=== PATIENT | female | born 1950 | race Caucasian/White ===

== ENCOUNTER → 2017-06-15 | Outpatient (CLI) | payer BC ==
--- NOTE | 2017-06-16 13:50 | MM ---
Reason for exam: screening (asymptomatic). Last mammogram was performed 1 year ago. History: Patient is postmenopausal and has history of other cancer at age 59. Family history of premenopausal breast cancer in sister at age 50 and breast cancer in mother at age 55. Benign right mammotome panel of the right breast, June 05, 2013. Benign excisional biopsy of the left breast, July 01, 1998. Benign stereotactic core biopsy of the left breast, May 27, 1998. Benign stereotactic core biopsy of the left breast, May 27, 1998. Physical Findings: A clinical breast exam by your physician is recommended on an annual basis and results should be correlated with mammographic findings. MG 3D Screening Mammo W/Cad Bilateral CC and MLO view(s) were taken. Prior study comparison: June 14, 2016, bilateral MG 3d screening mammo w/cad. June 10, 2015, bilateral MG screening mammo w CAD. There are scattered fibroglandular densities. Finding: There are typically benign round calcifications in both breasts. Previous mammotome biopsy in the right breast. ASSESSMENT: Benign, BI-RAD 2 RECOMMENDATION: Routine screening mammogram of both breasts in 1 year.
== END | disposition home or self-care (01) ==
LOC: RADMAMWWP 08:19
PROVIDERS: ATTEND Obstetrics & Gynecology
DX: Z12.31 Encounter for screening mammogram for malignant neoplasm of breast (principal)
CPT/HCPCS: 77063; G0202

== ENCOUNTER → 2018-06-17 | Outpatient (CLI) | payer MEDICARE, BC ==
--- NOTE | 2018-06-19 10:49 | MM ---
Reason for exam: screening (asymptomatic). Last mammogram was performed 1 year ago. History: Patient is postmenopausal and has history of other cancer at age 59. Family history of premenopausal breast cancer in sister at age 50 and breast cancer in mother at age 55. Benign right mammotome panel of the right breast, June 05, 2013. Benign excisional biopsy of the left breast, July 01, 1998. Benign stereotactic core biopsy of the left breast, May 27, 1998. Benign stereotactic core biopsy of the left breast, May 27, 1998. Physical Findings: A clinical breast exam by your physician is recommended on an annual basis and results should be correlated with mammographic findings. MG 3D Screening Mammo W/Cad Bilateral CC and MLO view(s) were taken. Prior study comparison: June 15, 2017, bilateral MG 3d screening mammo w/cad. June 14, 2016, bilateral MG 3d screening mammo w/cad. There are scattered fibroglandular densities. Benign appearing bilateral calcifications. No suspicious abnormality. Post biopsy change on the right breast. No significant changes when compared with prior studies. ASSESSMENT: Benign, BI-RAD 2 RECOMMENDATION: Routine screening mammogram of both breasts in 1 year.
== END | disposition home or self-care (01) ==
LOC: RADMAMWWP 08:27
PROVIDERS: ATTEND Obstetrics & Gynecology
DX: Z12.31 Encounter for screening mammogram for malignant neoplasm of breast (principal)
CPT/HCPCS: 77063; 77067

== ENCOUNTER 2018-07-27 12:41 | Emergency (ER) | payer MEDICARE, BC ==
[2018-07-27 12:58] VITALS: RESP 18; TEMP 97.9
[2018-07-27] MEDS ORDERED: SODIUM CHLORIDE 0.9% 1,000 ML IV STA (13:28)
[2018-07-27] MEDS ORDERED: MORPHINE SULFATE 4 MG/ML SYRINGE IV STA (13:28)
--- NOTE | 2018-07-27 13:29 | ED ---
Abdominal Pain HPI - General Chief Complaint: Abdominal Pain Stated Complaint: abdominal & rib pain Time Seen by Provider: 07/27/18 13:28 Source: patient, RN notes reviewed, old records reviewed Mode of arrival: wheelchair Limitations: no limitations - History of Present Illness Initial Comments: This is a 67-year-old female to the ER for evaluation. Patient presents today for evaluation regards to severe abdominal pain, nausea vomiting. No fevers. Severe abdominal pain earlier today. Patient is a complex along surgical history including 4 months ago Diaz multiple organs removed secondary to what they thought is kidney cancer with metastasis. Patient did not have significant pain until today, the pain did change today. No recent travel history otherwise no sick contacts no significant diarrhea or blood. MD Complaint: abdominal pain -: hour(s) Location: LLQ Radiation: none Migration to: LLQ Severity: moderate Severity scale (1-10): 7 Consistency: constant Improves With: nothing Worsens With: nothing Context: recent surgery/procedure Associated Symptoms: nausea Treatments Prior to Arrival: prescription analgesics - Related Data Home Medications Medication Instructions Recorded Confirmed Ergocalciferol (Vitamin D2) 50,000 unit PO Q14D 07/27/18 07/27/18 [Vitamin D2] Insulin Aspart [NovoLOG Flexpen] 5 units SQ ACHS 07/27/18 07/27/18 Insulin Aspart [NovoLOG Flexpen] See Protocol SQ ACHS PRN 07/27/18 07/27/18 Insulin Glargine,Hum.rec.anlog 15 unit SQ HS 07/27/18 07/27/18 [Lantus Solostar] Lipase/Protease/Amylase [Layne Ni 36,000 units PO DIRECTED 07/27/18 07/27/18 36,000 Units Capsule] Lipase/Protease/Amylase [Layne Ni 72,000 units PO TID-W/MEALS 07/27/18 07/27/18 36,000 Units Capsule] Methocarbamol [Robaxin] 500 mg PO Q8H PRN 07/27/18 07/27/18 Multivitamins, Thera [Multivitamin 1 tab PO DAILY 07/27/18 07/27/18 (formulary)] Allergies Allergy/AdvReac Type Severity Reaction Status Date / Time Penicillins Allergy Rash/Hives Verified 07/27/18 14:09 Sulfa (Sulfonamide Allergy Unknown Verified 07/27/18 14:09 Antibiotics) Review of Systems ROS Statement: Those systems with pertinent positive or pertinent negative responses have been documented in the HPI. ROS Other: All systems not noted in ROS Statement are negative. Past Medical History Past Medical History: Diabetes Mellitus History of Any Multi-Drug Resistant Organisms: None Reported Past Surgical History: Hysterectomy, Orthopedic Surgery Additional Past Surgical History / Comment(s): left kidney nephrectomy, ooporectomy, whipple procedure Past Psychological History: No Psychological Hx Reported Smoking Status: Never smoker Past Alcohol Use History: None Reported Past Drug Use History: None Reported General Exam Limitations: no limitations General appearance: alert, in no apparent distress Head exam: Present: atraumatic, normocephalic, normal inspection Eye exam: Present: normal appearance, PERRL, EOMI. Absent: scleral icterus, conjunctival injection, periorbital swelling ENT exam: Present: normal exam, mucous membranes moist Neck exam: Present: normal inspection. Absent: tenderness, meningismus, lymphadenopathy Respiratory exam: Present: normal lung sounds bilaterally. Absent: respiratory distress, wheezes, rales, rhonchi, stridor Cardiovascular Exam: Present: regular rate, normal rhythm, normal heart sounds. Absent: systolic murmur, diastolic murmur, rubs, gallop, clicks GI/Abdominal exam: Present: soft, tenderness, guarding (Left lower quadrant tenderness), normal bowel sounds. Absent: rebound, rigid Extremities exam: Present: normal inspection, full ROM, normal capillary refill. Absent: tenderness, pedal edema, joint swelling, calf tenderness Back exam: Present: normal inspection Neurological exam: Present: alert, oriented X3, CN II-XII intact Psychiatric exam: Present: normal affect, normal mood Skin exam: Present: warm, dry, intact, normal color. Absent: rash Course Vital Signs 07/27/18 12:54 Temperature 97.9 F Pulse Rate 57 L Respiratory 18 Rate Blood Pressure 136/73 O2 Sat by Pulse 98 Oximetry - Reevaluation(s) Reevaluation #1: 07/27/18 16:19 Medical record is reviewed Reevaluation #2: 07/27/18 16:19 Patient has significant past surgical history discussed with patient no surgeries prior were done here at this hospital Reevaluation #3: 07/27/18 16:19 Patient does have mild improvement in pain currently Reevaluation #4: 07/27/18 16:56 spoke w patient regarding diagnosis, questions answered Medical Decision Making - Medical Decision Making 67 female the ER with severe abdominal pain. She has free air in the abdomen of unknown etiology, whether diverticular or metastatic ulcerative disease, patient will be transferred under care of prior surgeon. - Lab Data Result diagrams: 07/27/18 14:17 07/27/18 14:17 Lab Results 07/27/18 07/27/18 07/27/18 Range/Units 14:17 14:17 14:17 WBC 11.2 H (3.8-10.6) k/uL RBC 4.43 (3.80-5.40) m/uL Hgb 13.2 (11.4-16.0) gm/dL Hct 40.6 (34.0-46.0) % MCV 91.5 (80.0-100.0) fL MCH 29.7 (25.0-35.0) pg MCHC 32.5 (31.0-37.0) g/dL RDW 13.8 (11.5-15.5) % Plt Count 427 (150-450) k/uL Neutrophils % 81 % Lymphocytes % 12 % Monocytes % 4 % Eosinophils % 1 % Basophils % 0 % Neutrophils # 9.1 H (1.3-7.7) k/uL Lymphocytes # 1.4 (1.0-4.8) k/uL Monocytes # 0.4 (0-1.0) k/uL Eosinophils # 0.1 (0-0.7) k/uL Basophils # 0.0 (0-0.2) k/uL Sodium 141 (137-145) mmol/L Potassium 4.8 (3.5-5.1) mmol/L Chloride 102 (98-107) mmol/L Carbon Dioxide 31 H (22-30) mmol/L Anion Gap 8 mmol/L BUN 19 H (7-17) mg/dL Creatinine 0.69 (0.52-1.04) mg/dL Est GFR (CKD-EPI)AfAm >90 (>60 ml/min/1.73 sqM) Est GFR (CKD-EPI)NonAf >90 (>60 ml/min/1.73 sqM) Glucose 104 H (74-99) mg/dL Plasma Lactic Acid Juancarlos 1.5 (0.7-2.0) mmol/L Calcium 9.6 (8.4-10.2) mg/dL Total Bilirubin 0.4 (0.2-1.3) mg/dL AST 35 (14-36) U/L ALT 34 (9-52) U/L Alkaline Phosphatase 103 (38-126) U/L Total Protein 6.3 (6.3-8.2) g/dL Albumin 3.7 (3.5-5.0) g/dL Amylase <30 L (30-110) U/L Lipase 10 L (23-300) U/L Urine Color Urine Appearance (Clear) Urine pH (5.0-8.0) Ur Specific [place] (1.001-1.035) Urine Protein (Negative) Urine Glucose (UA) (Negative) Urine Ketones (Negative) Urine Blood (Negative) Urine Nitrite (Negative) Urine Bilirubin (Negative) Urine Urobilinogen (<2.0) mg/dL Ur Leukocyte Esterase (Negative) 07/27/18 Range/Units 15:00 WBC (3.8-10.6) k/uL RBC (3.80-5.40) m/uL Hgb (11.4-16.0) gm/dL Hct (34.0-46.0) % MCV (80.0-100.0) fL MCH (25.0-35.0) pg MCHC (31.0-37.0) g/dL RDW (11.5-15.5) % Plt Count (150-450) k/uL Neutrophils % % Lymphocytes % % Monocytes % % Eosinophils % % Basophils % % Neutrophils # (1.3-7.7) k/uL Lymphocytes # (1.0-4.8) k/uL Monocytes # (0-1.0) k/uL Eosinophils # (0-0.7) k/uL Basophils # (0-0.2) k/uL Sodium (137-145) mmol/L Potassium (3.5-5.1) mmol/L Chloride (98-107) mmol/L Carbon Dioxide (22-30) mmol/L Anion Gap mmol/L BUN (7-17) mg/dL Creatinine (0.52-1.04) mg/dL Est GFR (CKD-EPI)AfAm (>60 ml/min/1.73 sqM) Est GFR (CKD-EPI)NonAf (>60 ml/min/1.73 sqM) Glucose (74-99) mg/dL Plasma Lactic Acid Juancarlos (0.7-2.0) mmol/L Calcium (8.4-10.2) mg/dL Total Bilirubin (0.2-1.3) mg/dL AST (14-36) U/L ALT (9-52) U/L Alkaline Phosphatase (38-126) U/L Total Protein (6.3-8.2) g/dL Albumin (3.5-5.0) g/dL Amylase (30-110) U/L Lipase (23-300) U/L Urine Color Yellow Urine Appearance Clear (Clear) Urine pH 5.5 (5.0-8.0) Ur Specific [place] 1.028 (1.001-1.035) Urine Protein Negative (Negative) Urine Glucose (UA) Negative (Negative) Urine Ketones Negative (Negative) Urine Blood Negative (Negative) Urine Nitrite Negative (Negative) Urine Bilirubin Negative (Negative) Urine Urobilinogen <2.0 (<2.0) mg/dL Ur Leukocyte Esterase Negative (Negative) - EKG Data -: EKG Interpreted by Me (KG shows sinus rhythm rate of 70, RI 154, QRS 86, QTc 442) - Radiology Data Radiology results: report reviewed (CT abdomen pelvis social minute free air), image reviewed Critical Care Time Critical Care Time: Yes Total Critical Care Time: 31 Disposition Clinical Impression: Peritonitis, Intra-abdominal free air of unknown etiology Disposition: OTHER INSTITUTION NOT DEFINED Condition: Serious Is patient prescribed a controlled substance at d/c from ED?: No Referrals: Cliff Whitman MD [Primary Care Provider] - 1-2 days - Out of Hospital Transfer - Req. Specs Out of Hospital Transfer - Requested Specifics: Other Emergency Center ( [facility]
[2018-07-27 14:35] LABS: Basophils % (A) 0 %; Eosinophils # (A) 0.1 k/uL (0-0.7); Eosinophils % (A) 1 %; HCT 40.6 % (34.0-46.0); HGB 13.2 gm/dL (11.4-16.0); Lymphocytes # (A) 1.4 k/uL (1.0-4.8); Lymphocytes % (A) 12 %; MCH 29.7 pg (25.0-35.0); MCHC 32.5 g/dL (31.0-37.0); MCV 91.5 fL (80.0-100.0); Monocytes # (A) 0.4 k/uL (0-1.0); Monocytes % (A) 4 %; Neutrophils # (A) 9.1 k/uL (1.3-7.7); Neutrophils % (A) 81 %; Platelet Count 427 k/uL (150-450); RBC 4.43 m/uL (3.80-5.40); RDW 13.8 % (11.5-15.5); WBC 11.2 k/uL (3.8-10.6)
[2018-07-27 14:47] LABS: ALT 34 U/L (9-52); AST 35 U/L (14-36); Albumin 3.7 g/dL (3.5-5.0); Alkaline Phosphatase 103 U/L (38-126); Amylase <30 U/L (30-110); Anion Gap 8 mmol/L; Blood Urea Nitrogen 19 mg/dL (7-17); Calcium 9.6 mg/dL (8.4-10.2); Carbon Dioxide 31 mmol/L (22-30); Chloride 102 mmol/L (98-107); Glucose 104 mg/dL (74-99); Lipase 10 U/L (23-300); Potassium 4.8 mmol/L (3.5-5.1); Sodium 141 mmol/L (137-145); Total Bilirubin 0.4 mg/dL (0.2-1.3); Total Protein 6.3 g/dL (6.3-8.2)
--- NOTE | 2018-07-27 15:42 | CT ---
EXAMINATION TYPE: CT abdomen pelvis w con DATE OF EXAM: 07/27/2018 COMPARISON: NONE HISTORY: 67-year-old female with left lower quadrant pain. TECHNIQUE: Contiguous axial scanning of the abdomen and pelvis following administration of 100 ml Iso gilmer 300 IV contrast. Delayed images through the kidneys and coronal/sagittal reconstructions perform ed. CT DLP: 984.7 mGycm Automated exposure control for dose reduction was used. FINDINGS: Heart upper limits of normal in size without pericardial effusion. Mild dependent atelectasis lung ba ses without pleural effusion. Liver upper limits of normal in size at 17.2 cm. Subcentimeter hypodensity anterior left liver lobe t oo small for accurate CT characterization, likely a tiny cyst. Portal venous system is patent. Pancreas is not seen, either severely atrophic or having previously had surgical intervention. Spleen is absent. Gallbladder not visualized. Clustered bowel loops in the dilip hepatis. Numerous hypodense lesions in the right kidney measuring up to 1.3 cm. Mild pelviectasis without alexa hydronephrosis. Surgical cl ips in the left nephrectomy bed and also along the left retroperitoneum. There is left-sided colonic diverticulosis but without any discrete pericolonic inflammation to sugge st acute diverticulitis. Redundant mid to distal sigmoid. No dilated small bowel. Punctate focus of what appears to be free air along the anterior left upper q uadrant, axial image 17, coronal image 21, and sagittal image 83. Some scattered nonspecific prominent mesenteric lymph nodes are present. Some of these lymph nodes ar e mildly enlarged measuring up to 3.6 x 1.0 cm, refer to coronal image 29 and axial image 42 is locat ed in the left side of the abdomen. There seems to have been some type of surgery, likely gastrojejunostomy. There is wall thickening at the apparent anastomosis and involving contiguous proximal jejunum with moderate focal inflammatory f at stranding in the left upper quadrant here. Additional focal fat stranding measuring 2.6 cm and the left nephrectomy bed adjacent. Normal appendix. Bladder urine distended. Uterus surgically absent. No abnormal fluid collection in the pelvis or pelv ic lymphadenopathy. Bones: Degenerative changes mid to lower lumbar spine with grade 1 anterolisthesis at L4-L5. IMPRESSION: 1. THE PANCREAS IS NOT SEEN AND COULD BE SEVERELY ATROPHIC OR SURGICALLY ABSENT. THE SPLEEN AND LEFT KIDNEY ARE ALSO ABSENT. A WELL-DEFINED PANCREATICOBILIARY LIMB OF SMALL BOWEL IS NOT CLEARLY IDENTIFI ED. THERE HAS ALSO BEEN PRIOR LEFT RETROPERITONEAL LYMPH NODE DISSECTION. CORRELATE WITH PATIENT'S GA IOR SURGICAL AND POSSIBLE ONCOLOGIC HISTORY. 2. WHAT APPEARS TO BE A GASTROJEJUNOSTOMY. THERE IS PRONOUNCED WALL THICKENING AT THE ANASTOMOSIS WIT H CONTIGUOUS WALL THICKENING EXTENDING TO INVOLVE PROXIMAL JEJUNUM WITH MODERATE SURROUNDING INFLAMMA TION. THIS INFLAMMATION IS NONSPECIFIC AND SOME POSSIBILITIES INCLUDE GASTROENTERITIS, PEPTIC ULCER D ISEASE, OR UNDERLYING ULCERATIVE NEOPLASM THOUGH A WELL-DEFINED MASS IS NOT CLEARLY IDENTIFIED. 3. TINY SOLITARY FOCUS OF FREE AIR IN THE ANTERIOR LEFT UPPER QUADRANT. 4. LEFT ABDOMINAL MESENTERIC LYMPHADENOPATHY COULD BE REACTIVE OR COULD REPRESENT METASTATIC DISEASE. 5. LEFT-SIDED COLONIC DIVERTICULOSIS BUT WITHOUT EVIDENCE FOR ACUTE DIVERTICULITIS.
[2018-07-27 15:49] LABS: Appearance,Urine Clear (Clear); Bilirubin,Urine Negative (Negative); Blood,Urine Negative (Negative); Color,Urine Yellow; Glucose,Urine (UA) Negative (Negative); Ketones,Urine Negative (Negative); Leukocyte Esterase,Urine Negative (Negative); Nitrite,Urine Negative (Negative); PH, Urine 5.5 (5.0-8.0); Protein,Urine Negative (Negative); Specific Gravity,Urine 1.028 (1.001-1.035); Urobilinogen,Urine <2.0 mg/dL (<2.0)
[2018-07-27] MEDS ORDERED: LEVOFLOXACIN 750MG-D5W PMX 750 MG in DEXTROSE/WATER 1 150ML.BAG IVPB STA (16:56)
[2018-07-27] MEDS ORDERED: ONDANSETRON 4 MG/2 ML VIAL IVP STA (16:56)
[2018-07-27] MEDS ORDERED: MORPHINE SULFATE 4 MG/ML SYRINGE IVP STA (16:56)
[2018-07-27] MEDS ORDERED: metroNIDAZOLE-NS PMX 500 MG in SALINE 1 100ML.BAG IVPB STA (16:56)
[2018-07-27 17:35] VITALS: BP 151/59; PULSE 87
== END 2018-07-27 18:37 | disposition other institution (70) ==
LOC: EC 12:41
DX: K65.9 Peritonitis, unspecified (principal); R07.81 Pleurodynia; E11.9 Type 2 diabetes mellitus without complications; Z90.710 Acquired absence of both cervix and uterus; Z85.528 Personal history of other malignant neoplasm of kidney; Z90.5 Acquired absence of kidney; Z79.4 Long term (current) use of insulin; Z88.0 Allergy status to penicillin; Z88.2 Allergy status to sulfonamides
CPT/HCPCS: 36415; 80053; 82150; 83605; 83690; 85025; 81003; 87086; 74177; 99291; 96374; 96375; 96376; 96361; J2270; J2405; J1956; Q9967

== ENCOUNTER → 2019-07-04 | Outpatient (CLI) | payer MEDICARE, BC ==
--- NOTE | 2019-07-05 12:09 | MM ---
Reason for exam: screening (asymptomatic). Last mammogram was performed 1 year and 1 month ago. History: Patient is postmenopausal and has history of other cancer at age 59. Family history of premenopausal breast cancer in sister at age 50 and breast cancer in mother at age 55. Benign right mammotome panel of the right breast, June 05, 2013. Benign excisional biopsy of the left breast, July 01, 1998. Benign stereotactic core biopsy of the left breast, May 27, 1998. Benign stereotactic core biopsy of the left breast, May 27, 1998. Physical Findings: A clinical breast exam by your physician is recommended on an annual basis and results should be correlated with mammographic findings. MG 3D Screening Mammo W/Cad Bilateral CC and MLO view(s) were taken. Prior study comparison: June 17, 2018, bilateral MG 3d screening mammo w/cad. June 15, 2017, bilateral MG 3d screening mammo w/cad. The breast tissue is heterogeneously dense. This may lower the sensitivity of mammography. There are benign appearing round calcifications bilaterally. There is no discrete abnormality. ASSESSMENT: Benign, BI-RAD 2 RECOMMENDATION: Routine screening mammogram of both breasts in 1 year.
== END | disposition home or self-care (01) ==
LOC: RADMAMWWP 10:52
PROVIDERS: ATTEND Obstetrics & Gynecology
DX: Z12.31 Encounter for screening mammogram for malignant neoplasm of breast (principal)
CPT/HCPCS: 77063; 77067

== ENCOUNTER 2020-06-10 08:48 | Day surgery (SDC) | payer MEDICARE, BC ==
[2020-06-10] MEDS ORDERED: LIDOCAINE 1% INJ 10MG/ML (20 ML MDV) ONE (09:19)
[2020-06-10 09:49] LABS: Mean Platelet Volume 10.2; Platelet Count 249 k/uL (150-450)
[2020-06-10] MEDS ORDERED: ALPRAZolam 0.25 MG TAB PO STA (10:06)
[2020-06-10 10:15] LABS: Prothrombin Time 10.8 sec (9.0-12.0)
[2020-06-10 11:01] VITALS: TEMP 98.2
[2020-06-10] MEDS ORDERED: HYDROmorphone 0.5 MG/0.5 ML SYRINGE IVP STA (11:49)
[2020-06-10] MEDS ORDERED: LIDOCAINE 1% INJ 10MG/ML (20 ML MDV) SQ STA ×2 (13:00→14:23)
[2020-06-10 13:43] LABS: Glucose,Whole Blood 120 mg/dL (75-99)
[2020-06-10 14:54] VITALS: RESP 16
[2020-06-10 16:34] VITALS: BP 141/65; PULSE 58
--- NOTE | 2020-06-10 17:26 | CT ---
EXAMINATION TYPE: CT biopsy abdomen percutaneous DATE OF EXAM: 06/10/2020 HISTORY: History of renal cell carcinoma status post left nephrectomy. Increasing size of left nephre ctomy bed soft tissue nodule. COMPARISON: [facility] CT chest and pelvis 04/09/2020. ARTIST COLOR SEPARATION: Dr. Nishi Babb PROCEDURE: The risks, benefits, and alternatives were discussed with the patient. Informed consent was obtained. The patient was originally positioned left lateral decubitus. Preliminary CT imaging demonstrated a s oft tissue nodule within the superior aspect of the left nephrectomy bed. The skin overlying a suitab le path to the left nephrectomy bed lesion was localized using CT and the overlying skin was prepped and draped utilizing maximal barrier technique. Lidocaine used for local anesthesia. A small skin edie k was made with a scalpel. Using CT guidance, a 17-gauge coaxial core biopsy needle was advanced towa rds the soft tissue nodule. The patient had significant arm discomfort due to left lateral decubitus positioning and needed to reposition in order to continue procedure. The core biopsy needle was remov ed. The patient was positioned prone. The skin overlying a suitable path to the left nephrectomy bed soft tissue nodule was localized using CT and the overlying skin was reprepped and draped utilizing m aximal barrier technique. Lidocaine was used for local anesthesia. A small skin akin was made with a scalpel. Using CT guidance, a 19-gauge introducer needle was advanced towards the soft tissue nodule. The stylet was removed and an 18-gauge coaxial core biopsy needle was utilized to obtain the biopsy specimen. Core specimen(s) submitted in formalin for histopathology. 4 pass(es) performed in all. Al l needles were removed and sterile bandage was applied. Postprocedure CT imaging demonstrated no evidence of significant hemorrhage or pneumothorax. Patient tolerated procedure well with no immediate complications. Patient is discharged in stable condition. IMPRESSION: Successful CT-guided left nephrectomy bed soft tissue nodule 20-gauge core biopsy. Pathology pending.
== END 2020-06-10 16:31 | disposition home or self-care (01) ==
LOC: RADPROMAIN 08:48
PROVIDERS: ATTEND Surgery
DX: N28.89 Other specified disorders of kidney and ureter (principal); Z85.528 Personal history of other malignant neoplasm of kidney; Z90.5 Acquired absence of kidney
CPT/HCPCS: 88305; 82947; 85049; 85610; 36415; 49180; 77012; J2001; J1170

== ENCOUNTER → 2020-08-05 | Outpatient (CLI) | payer MEDICARE, BC ==
--- NOTE | 2020-08-05 16:15 | BD ---
EXAMINATION TYPE: Axial Bone Density DATE OF EXAM: 08/05/2020 COMPARISON: 06/10/2015 CLINICAL HISTORY: N 95.1 Height: 61.2 IN Weight: 158 LBS FRAX RISK QUESTIONS: History of Fracture in Adulthood: RT FOOT AGE 59 Secondary Osteoporosis: 1. Type 1 Diabetes: YES 3. Menopause before 45: TOTAL HYST AGE 39 RISK FACTORS HISTORY OF: Active: YES Diet low in dairy products/other sources of calcium: YES Postmenopausal woman: TOTAL HYST AGE 39 MEDICATIONS: Additional Medications: CALCIUM, VIT D, PANCREATIC ENZYME, INSULIN Additional History: KIDNEY CANCER WITH CHEMO EXAM MEASUREMENTS: Bone mineral densitometry was performed using the [employer] System. Bone mineral density as measured about the Lumbar spine is: ----- L1-L4(G/cm2): 1.050 T Score Values are as follows: ----- L2: -1.8 ----- L3: -0.9 ----- L4: -0.6 ----- L1-L4: -1.1 Bone mineral density has: Decreased -2.7% since study of: 06/10/2015 Bone mineral density about the R hip (g/cm2): 0855 Bone mineral density about the L hip (g/cm2): 0.786 T Score values are as follows: -----R Neck: -1.3 -----L Neck: -1.8 -----R Total: -1.2 -----L Total: -1.6 Bone mineral density has: Decreased -20.5% since study of: 06/10/2015 IMPRESSION: Osteopenia (T Score between -2.5 and -1). There is slightly increased risk of fracture and the patient may be considered for treatment. Re-Screen 2-5 years. NOTE: T-SCORE=SD OF THE YOUNG ADULT MEAN.
--- NOTE | 2020-08-06 11:16 | MM ---
Reason for exam: screening (asymptomatic). Last mammogram was performed 1 year and 1 month ago. History: Patient is postmenopausal and has history of other cancer at age 59. Family history of premenopausal breast cancer in sister at age 50 and breast cancer in mother at age 55. Benign right mammotome panel of the right breast, June 05, 2013. Benign excisional biopsy of the left breast, July 01, 1998. Benign stereotactic core biopsy of the left breast, May 27, 1998. Benign stereotactic core biopsy of the left breast, May 27, 1998. Physical Findings: A clinical breast exam by your physician is recommended on an annual basis and results should be correlated with mammographic findings. MG 3D Screening Mammo W/Cad Bilateral CC, MLO, and XCCL view(s) were taken. Prior study comparison: July 04, 2019, bilateral MG 3d screening mammo w/cad. June 17, 2018, bilateral MG 3d screening mammo w/cad. The breast tissue is heterogeneously dense. This may lower the sensitivity of mammography. Finding #1: There is a 10 mm indistinct oval mass in the upper outer quadrant, middle position of the right breast. Finding #2: There are typically benign round calcifications in both breasts. Previous mammotome biopsy in the right breast. Stable distortion left breast upper outer quadrant excision changes. ASSESSMENT: Incomplete: need additional imaging evaluation, BI-RAD 0 RECOMMENDATION: Ultrasound of the right breast. [facility] will attempt to contact patient to return for ultrasound.
== END | disposition home or self-care (01) ==
LOC: RADMAMWWP 09:56
PROVIDERS: ATTEND Obstetrics & Gynecology
DX: Z12.31 Encounter for screening mammogram for malignant neoplasm of breast (principal); M85.80 Other specified disorders of bone density and structure, unspecified site
CPT/HCPCS: 77063; 77067; 77080

== ENCOUNTER → 2020-08-12 | Outpatient (CLI) | payer MEDICARE, BC ==
--- NOTE | 2020-08-13 09:07 | USB ---
Reason for exam: additional evaluation requested from abnormal screening. History: Patient is postmenopausal and has history of other cancer at age 59. Family history of premenopausal breast cancer in sister at age 50, breast cancer in mother at age 55, and unknown cancer in maternal aunt. Benign right mammotome panel of the right breast, June 05, 2013. Benign excisional biopsy of the left breast, July 01, 1998. Benign stereotactic core biopsy of the left breast, May 27, 1998. Benign stereotactic core biopsy of the left breast, May 27, 1998. Physical Findings: Nurse did not find any significant physical abnormalities on exam. US Breast Workup Limited RT Right limited breast ultrasound including focal area of concern, retroareolar and axilla demonstrates no cystic or solid lesion seen. These results were verbally communicated with the patient and result sheet given to the patient on 08/12/20. ASSESSMENT: Incomplete: need additional imaging evaluation, BI-RAD 0 RECOMMENDATION: Special view mammogram of the right breast.
--- NOTE | 2020-08-13 09:08 | MM ---
Reason for exam: additional evaluation requested from abnormal screening. Last mammogram was performed less than 1 month ago. History: Patient is postmenopausal and has history of other cancer at age 59. Family history of premenopausal breast cancer in sister at age 50, breast cancer in mother at age 55, and unknown cancer in maternal aunt. Benign right mammotome panel of the right breast, June 05, 2013. Benign excisional biopsy of the left breast, July 01, 1998. Benign stereotactic core biopsy of the left breast, May 27, 1998. Benign stereotactic core biopsy of the left breast, May 27, 1998. MG 3D Diag Mammo W/Cad RT Spot compression CC, spot compression MLO, and ML view(s) were taken of the right breast. Prior study comparison: August 05, 2020, bilateral MG 3d screening mammo w/cad. July 04, 2019, bilateral MG 3d screening mammo w/cad. The breast tissue is heterogeneously dense. This may lower the sensitivity of mammography. There is no discrete abnormality including area of concern. These results were verbally communicated with the patient and result sheet given to the patient on 08/12/20. ASSESSMENT: Negative, BI-RAD 1 RECOMMENDATION: Return to routine screening mammogram schedule for both breasts.
== END | disposition home or self-care (01) ==
LOC: RADUSWWP 14:19
PROVIDERS: ATTEND Obstetrics & Gynecology
DX: R92.8 Other abnormal and inconclusive findings on diagnostic imaging of breast (principal)
CPT/HCPCS: 77065; 76642; G0279; 77061

== ENCOUNTER → 2021-08-14 | Outpatient (CLI) | payer MEDICARE ==
--- NOTE | 2021-08-17 08:10 | MM ---
Reason for exam: screening (asymptomatic). Last mammogram was performed 1 year ago. History: Patient is postmenopausal and has history of other cancer at age 59. Family history of premenopausal breast cancer in sister at age 50, breast cancer in mother at age 55, and unknown cancer in maternal aunt. Benign right mammotome panel of the right breast, June 05, 2013. Benign excisional biopsy of the left breast, July 01, 1998. Benign stereotactic core biopsy of the left breast, May 27, 1998. Benign stereotactic core biopsy of the left breast, May 27, 1998. Physical Findings: A clinical breast exam by your physician is recommended on an annual basis and results should be correlated with mammographic findings. MG 3D Screening Mammo W/Cad Bilateral CC and MLO view(s) were taken. Prior study comparison: August 12, 2020, right breast MG 3d diag mammo w/cad RT. August 05, 2020, bilateral MG 3d screening mammo w/cad. The breast tissue is heterogeneously dense. This may lower the sensitivity of mammography. Finding: Stable architectural distortion in the upper quadrant of the left breast consistent with known excisional changes. Previous mammotome biopsy in the right breast. Asymmetric breast tissue in the left breast, stable. ASSESSMENT: Benign, BI-RAD 2 RECOMMENDATION: Routine screening mammogram of both breasts in 1 year.
== END | disposition home or self-care (01) ==
LOC: RADMAMWWP 09:27
PROVIDERS: ATTEND Obstetrics & Gynecology
DX: Z12.31 Encounter for screening mammogram for malignant neoplasm of breast (principal); Z78.0 Asymptomatic menopausal state; Z80.3 Family history of malignant neoplasm of breast
CPT/HCPCS: 77063; 77067

== ENCOUNTER → 2022-08-16 | Outpatient (CLI) | payer MEDICARE ==
--- NOTE | 2022-08-16 11:16 | BD ---
EXAMINATION TYPE: Axial Bone Density DATE OF EXAM: 08/16/2022 COMPARISON: 08-05-2020 CLINICAL HISTORY: 71 years year old Female. ICD-10 CODE: M85.88 disorder of bne density/s Height: 61IN Weight: 174LB FRAX RISK QUESTIONS: History of Fracture in Adulthood: YES Secondary Osteoporosis: 1. Type 1 Diabetes: YES 3. Menopause before 45: YES RISK FACTORS HISTORY OF: Active: YES Diet low in dairy products/other sources of calcium: YES Postmenopausal woman: YES MEDICATIONS: Additional Medications: INSULIN, PANCREATIC ENZYME, REFLUX MED, CHOLESTEROL MED, VITAMIN D Additional History: KIDNEY CANCER, FOOT FX EXAM MEASUREMENTS: Bone mineral densitometry was performed using the [employer]. Bone mineral density as measured about the Lumbar spine is: ----- L1-L4(G/cm2): 1.060 T Score Values are as follows: ----- L1: -1.0 ----- L2: -1.5 ----- L3: -1.1 ----- L4: -0.8 ----- L1-L4: -1.0 Bone mineral density has: Decreased -0.1% since study of: 08-05-2020 Bone mineral density about the R hip (g/cm2): 0.907 Bone mineral density about the L hip (g/cm2): 0.837 T Score values are as follows: -----R Neck: -1.1 -----L Neck: -1.7 -----R Total: -0.8 -----L Total: -1.4 Bone mineral density has: Increased 5.6% since study of: 08-05-2020 FRAX%s: The graph provided illustrates a 15.7% chance for a major osteoporotic fx and a 2.4% chance f or the hips probability for fx in 10 years time. IMPRESSION: Osteopenia (T Score between -2.5 and -1). There is slightly increased risk of fracture and the patient may be considered for treatment. Re-Screen 2-5 years. NOTE: T-SCORE=SD OF THE YOUNG ADULT MEAN.
--- NOTE | 2022-08-17 08:41 | MM ---
Reason for Exam: Screening (asymptomatic). Last screening mammogram was performed 12 month(s) ago. Patient History: Menarche at age 12. First Full-Term at age 23. Left ovary removed at age 38. Right ovary removed at age 38. Hysterectomy at age 38. Postmenopausal. Other cancer, age 59. 07/01/1998, Benign Excisional Biopsy on the left side. 06/05/2013, Benign Core Biopsy on the right side. 05/27/1998, Benign Stereotactic Core Biopsy on the left side. 05/27/1998, Benign Stereotactic Core Biopsy on the left side. Maternal aunt had other cancer. Sister had breast cancer, age 50. Mother had breast cancer, age 55. Risk Values: Lynne 5 year model risk: 11.2%. NCI Lifetime model risk: 30.5%. Prior Study Comparison: 08/05/2020 Bilateral Screening Mammogram, [facility]. 08/12/2020 Right Diagnostic Mammogram, [facility]. 08/14/2021 Bilateral Screening Mammogram, [facility]. Tissue Density: There are scattered fibroglandular densities. Findings: Analyzed By CAD. Bilateral benign-appearing calcifications. There is no suspicious group of microcalcifications or new suspicious mass in either breast. Overall Assessment: Benign, BI-RAD 2 Management: Screening Mammogram of both breasts in 1 year. A clinical breast exam by your physician is recommended on an annual basis and results should be correlated with mammographic findings. [facility] will attempt to contact patient to return for supplemental views and ultrasound if indicated. Electronically signed and approved by: Daniel James DO
== END | disposition home or self-care (01) ==
LOC: RADMAMWWP 09:36
PROVIDERS: ATTEND Obstetrics & Gynecology
DX: Z12.31 Encounter for screening mammogram for malignant neoplasm of breast (principal); M85.89 Other specified disorders of bone density and structure, multiple sites; E10.9 Type 1 diabetes mellitus without complications; Z78.0 Asymptomatic menopausal state; Z80.3 Family history of malignant neoplasm of breast; Z98.890 Other specified postprocedural states
CPT/HCPCS: 77063; 77067; 77080

== ENCOUNTER → 2023-08-17 | Outpatient (CLI) | payer MEDICARE ==
--- NOTE | 2023-08-18 09:21 | MM ---
Reason for Exam: Screening (asymptomatic). Last screening mammogram was performed 12 month(s) ago. Patient History: Menarche at age 12. First Full-Term at age 23. Left ovary removed at age 38. Right ovary removed at age 38. Hysterectomy at age 38. Postmenopausal. Other cancer, age 59. 07/01/1998, Benign Excisional Biopsy on the left side. 06/05/2013, Benign Core Biopsy on the right side. 05/27/1998, Benign Stereotactic Core Biopsy on the left side. 05/27/1998, Benign Stereotactic Core Biopsy on the left side. Maternal aunt had other cancer. Sister had breast cancer, age 50. Mother had breast cancer, age 55. Risk Values: Lynne 5 year model risk: 11.3%. NCI Lifetime model risk: 29.2%. Prior Study Comparison: 08/12/2020 Right Diagnostic Mammogram, [facility]. 08/14/2021 Bilateral Screening Mammogram, [facility]. 08/16/2022 Bilateral MG 3D screening mammo w/cad, [facility]. Tissue Density: There are scattered fibroglandular densities. Findings: Analyzed By CAD. There is no suspicious group of microcalcifications or new suspicious mass. Benign-appearing calcifications bilaterally. Overall Assessment: Benign, BI-RAD 2 Management: Screening Mammogram of both breasts in [address] [facility] will attempt to contact patient to return for supplemental views and ultrasound if indicated. Patient should continue monthly self-breast exams. A clinical breast exam by your physician is recommended on an annual basis. This exam should not preclude additional follow-up of suspicious palpable abnormalities. Note on Lynne scores and lifetime risk: 1. A Lynne score greater than 3% is considered moderate risk. If this is the case, consider specialist referral to assess eligibility for a risk reducing agent. 2. If overall lifetime risk for the development of breast cancer is 20% or higher, the patient may qualify for future screening with alternating mammogram and breast MRI. Electronically signed and approved by: Daniel James DO
== END | disposition home or self-care (01) ==
LOC: RADMAMWWP 10:07
PROVIDERS: ATTEND Obstetrics & Gynecology
DX: Z12.31 Encounter for screening mammogram for malignant neoplasm of breast (principal); Z80.3 Family history of malignant neoplasm of breast; Z78.0 Asymptomatic menopausal state
CPT/HCPCS: 77063; 77067

== ENCOUNTER 2024-09-27 15:43 | Inpatient (IN) | payer MEDICARE ==
[2024-09-27 16:25] LABS: Basophils # (A) 0.1 k/uL (0-0.2); Basophils % (A) 1 %; Eosinophils # (A) 0.2 k/uL (0-0.7); Eosinophils % (A) 2 %; HCT 46.1 % (34.0-46.0); HGB 13.9 gm/dL (11.4-16.0); Hypochromasia Slight; Lymphocytes # (A) 1.9 k/uL (1.0-4.8); Lymphocytes % (A) 23 %; MCH 29.6 pg (25.0-35.0); MCHC 30.2 g/dL (31.0-37.0); Mean Platelet Volume 10.4; Monocytes # (A) 0.5 k/uL (0-1.0); Monocytes % (A) 6 %; Neutrophils # (A) 5.6 k/uL (1.3-7.7); Neutrophils % (A) 67 %; Platelet Count 268 k/uL (150-450); RBC 4.71 m/uL (3.80-5.40); RDW 12.9 % (11.5-15.5); WBC 8.4 k/uL (3.8-10.6)
--- NOTE | 2024-09-27 16:32 | XR ---
EXAMINATION TYPE: XR chest 2V DATE OF EXAM: 09/27/2024 4:25 PM COMPARISON: Chest radiographs from 09/27/2024 CLINICAL INDICATION: Female, 73 years old with history of altered mental status; [facility] TECHNIQUE: XR chest 2V Frontal and lateral views of the chest. FINDINGS: Lungs/Pleura: There is no evidence of pleural effusion, focal consolidation, or pneumothorax. Pulmonary vascularity: Unremarkable. Heart/mediastinum: Cardiomediastinal silhouette is unremarkable. Musculoskeletal: No acute osseous pathology. IMPRESSION: No acute cardiopulmonary disease/process. [facility], , 09/27/2024 4:29 PM
[2024-09-27 16:39] LABS: ALT 39 U/L (4-34); AST 48 U/L (14-36); African American GFR (CKD) >90 (>60 ml/min/1.73 sqM); Albumin 4.3 g/dL (3.5-5.0); Alkaline Phosphatase 104 U/L (38-126); Anion Gap 4 mmol/L; Blood Urea Nitrogen 21 mg/dL (7-17); Calcium 9.5 mg/dL (8.4-10.2); Carbon Dioxide 28 mmol/L (22-30); Chloride 102 mmol/L (98-107); Creatine Kinase 75 U/L (30-135); Glucose 222 mg/dL (74-99); Non-African American GFR(CKD) 90 (>60 ml/min/1.73 sqM); Potassium 4.8 mmol/L (3.5-5.1); Sodium 134 mmol/L (137-145); Total Bilirubin 0.5 mg/dL (0.2-1.3)
[2024-09-27 16:41] LABS: Prothrombin Time 11.4 sec (10.0-12.5)
--- NOTE | 2024-09-27 17:40 | CT ---
EXAMINATION TYPE: CT brain wo con DATE OF EXAM: 09/27/2024 COMPARISON: NONE CLINICAL INDICATION: Female, 73 years old with history of r eye visual changes, TECHNIQUE: CT scan of the head is performed without contrast. CT DLP: 1141 mGycm. Automated Exposure Control for Dose Reduction was Utilized. FINDINGS: There is no acute intracranial hemorrhage or midline shift identified. Ventricles and sul ci are within normal limits in size for patient's age. Montez-white matter differentiation is fairly we ll preserved. Nasal septum slightly deviated to right of midline. The globes are intact and the visu alized sinuses are clear. IMPRESSION: No acute intracranial hemorrhage or midline shift. [facility], , 09/27/2024 5:37 PM
--- NOTE | 2024-09-27 19:34 | ED ---
General Adult HPI - General Chief complaint: Neuro Symptoms/Deficit Stated complaint: vision loss Time Seen by Provider: 09/27/24 17:09 Source: patient, RN notes reviewed Mode of arrival: ambulatory Limitations: no limitations - History of Present Illness Initial comments: Patient is a 73-year-old female presenting to the emergency department with concern with visual changes to the right eye. Patient is examined in the waiting room secondary to no beds available. Patient has approximately 24 hours of changes with vision of her right eye. Patient is only able to see less than 20% of the vision in the right eye. Patient is unable to see medially and can see somewhat laterally. Patient did go to her eye doctor, Dr. Vasquez who has concern for stroke. He recommended patient come to the hospital for stroke workup. Impression was central retinal artery occlusion. Left eye is not affected at all. Patient was dilated at the office prior to arrival. No headache. - Related Data Home Medications Medication Instructions Recorded Confirmed Insulin Aspart [NovoLOG Flexpen] 5 units SQ ACHS 07/27/18 06/10/20 Lipase/Protease/Amylase [Layne Ni 36,000 units PO DIRECTED 07/27/18 05/30/20 36,000 Units Capsule] Lipase/Protease/Amylase [Layne Ni 72,000 units PO TID-W/MEALS 07/27/18 05/30/20 36,000 Units Capsule] Multivitamins, Thera [Multivitamin 1 tab PO DAILY 07/27/18 05/30/20 (formulary)] Cholecalciferol (Vitamin D3) 125 mcg PO DIRECTED 05/30/20 06/10/20 [Vitamin D3] Insulin Glargine,Hum.rec.anlog 11 units SQ HS 05/30/20 06/10/20 [Toujeo Solostar] Pantoprazole [Protonix] 1 tab PO HS 05/30/20 05/30/20 Sucralfate [Carafate] 1 gm PO BID PRN 05/30/20 05/30/20 Allergies Allergy/AdvReac Type Severity Reaction Status Date / Time Penicillins Allergy Rash/Hives Verified 09/27/24 15:55 Sulfa (Sulfonamide Allergy Unknown Verified 09/27/24 15:55 Antibiotics) Review of Systems ROS Statement: Those systems with pertinent positive or pertinent negative responses have been documented in the HPI. ROS Other: All systems not noted in ROS Statement are negative. Constitutional: Denies: fever Eyes: Reports: as per HPI, vision change ENT: Denies: ear pain Respiratory: Denies: cough Cardiovascular: Denies: palpitations Past Medical History Past Medical History: Cancer, Diabetes Mellitus Additional Past Medical History / Comment(s): kidney cancer CA, with pancreas mets, regrowth in nephrectomy bed. History of Any Multi-Drug Resistant Organisms: None Reported Past Surgical History: Hysterectomy, Orthopedic Surgery Additional Past Surgical History / Comment(s): left kidney nephrectomy, o oporectomy, whipple procedure, breast biopsy, Past Anesthesia/Blood Transfusion Reactions: No Reported Reaction Past Psychological History: No Psychological Hx Reported Smoking Status: Former smoker Past Alcohol Use History: None Reported Past Drug Use History: None Reported - Past Family History Mother Family Medical History: Cancer General Exam Limitations: no limitations General appearance: alert, in no apparent distress, other (No tenderness over the temporal artery) Head exam: Present: atraumatic Eye exam: Present: EOMI, other (Pupils are dilated bilateral however there is some reactivity.) Pupils: Present: mydriatic ENT exam: Present: normal oropharynx Respiratory exam: Present: normal lung sounds bilaterally Cardiovascular Exam: Present: regular rate, normal rhythm GI/Abdominal exam: Present: soft. Absent: tenderness Extremities exam: Present: normal inspection Neurological exam: Present: alert, oriented X3, CN II-XII intact, motor sensory deficit Expanded Neurological exam: Present: protecting the airway Patient oriented to: Present: person, place, time Speech: Present: fluid speech Cranial nerves: EOM's Intact: Normal, Facial Sensation: Normal Sensory exam: Upper Extremity Light Touch: Normal, Lower Extremity Light Touch: Normal Motor strength exam: RUE: 5, LUE: 5, RLE: 5, LLE: 5 Eye Response: (4) open spontaneously Motor Response: (6) obeys commands Verbal Response: (5) oriented Psychiatric exam: Present: normal affect, normal mood Skin exam: Present: normal color Course Vital Signs 09/27/24 15:52 Temperature 98.0 F Pulse Rate 67 Respiratory 18 Rate Blood Pressure 158/82 O2 Sat by Pulse 96 Oximetry Medical Decision Making - Medical Decision Making Was pt. sent in by a medical professional or institution (, PA, HOME THERAPY CLINICIAN, urgent care, hospital, or penitentiary...) When possible be specific @ -Patient was was sent in by her eye doctor Did you speak to anyone other than the patient for history (EMS, parent, family, police, friend...)? What history was obtained from this source @ - is present helps right history including history of from the eye doctor and concerns Did you review nursing and triage notes (agree or disagree)? Why? @ -I reviewed and agree with nursing and triage notes Were old charts reviewed (outside hosp., previous admission, EMS record, old EKG, old radiological studies, urgent care reports/EKG's, penitentiary records)? Report findings @ -Chart reviewed from [facility] Differential Diagnosis (chest pain, altered mental status, abdominal pain women, abdominal pain men, vaginal bleeding, weakness, fever, dyspnea, syncope, headache, dizziness, GI bleed, back pain, seizure, CVA, palpatations, mental health, musculoskeletal)? @ -Differential Weakness: Hypoglycemia, shock, sepsis, hyponatremia, anemia, infection, FL, ETOH, adverse medicine reaction, overdose, stroke, this is not meant to be an all-inclusive list. EKG interpreted by me (3pts min.). @ -As above X-rays interpreted by me (1pt min.). @ -Chest x-ray does not reveal acute abnormality CT interpreted by me (1pt min.). @ -CT scan of the brain without acute abnormality U/S interpreted by me (1pt. min.). @ -None done What testing was considered but not performed or refused? (CT, X-rays, U/S, labs)? Why? @ -None What meds were considered but not given or refused? Why? @ -None Did you discuss the management of the patient with other professionals (professionals i.e. , PA, HOME THERAPY CLINICIAN, lab, RT, psych nurse, social media strategist, senior tax accountant, teacher, safety officer, bilingual patient support caseworker)? Give summary @ -Case was discussed with Dr. Landa who will admit covering Dr. Mayorga Was smoking cessation discussed for >3mins.? @ -No Was critical care preformed (if so, how long)? @ -No Were there social determinants of health that impacted care today? How? (Homelessness, low income, unemployed, alcoholism, drug addiction, transportation, low edu. Level, literacy, decrease access to med. care, usp, rehab)? @ -No Was there de-escalation of care discussed even if they declined (Discuss DNR or withdrawal of care, Hospice)? DNR status @ -No What co-morbidities impacted this encounter? (DM, HTN, Smoking, COPD, CAD, Cancer, CVA, ARF, Chemo, Hep., AIDS, mental health diagnosis, sleep apnea, morbi d obesity)? @ -None Was patient admitted / discharged? Hospital course, mention meds given and rout e, prescriptions, significant lab abnormalities, going to OR and other pertinent info. @ -Patient presents with visual changes with concern for central retinal artery occlusion. Patient will be admitted with neurology consult. Patient updated on results and plan. Admission orders are written. Undiagnosed new problem with uncertain prognosis? @ -No Drug Therapy requiring intensive monitoring for toxicity (Heparin, Nitro, Insulin, Cardizem)? @ -No Were any procedures done? @ -No Diagnosis/symptom? @ -Decreased vision Acute, or Chronic, or Acute on Chronic? @ -Acute Uncomplicated (without systemic symptoms) or Complicated (systemic symptoms)? @ -Default Side effects of treatment? @ -No Exacerbation, Progression, or Severe Exacerbation? @ -No Poses a threat to life or bodily function? How? (Chest pain, USA, FL, pneumonia, PE, COPD, DKA, ARF, appy, cholecystitis, CVA, Diverticulitis, Homicidal, Suicidal, threat to staff... and all critical care pts) @ -Threat to visual and neurological function Pressure on the right eye is 12 Case was also discussed with Nereyda from [facility] who did discuss case with Eric Vasquez. She does confirm that patient does not need ophthalmology consult and they will follow-up with him once discharged and was just sent here for neurology/stroke evaluation - Lab Data Result diagrams: 09/27/24 16:14 09/27/24 16:14 Lab Results 09/27/24 09/27/24 09/27/24 Range/Units 16:14 16:14 16:14 WBC 8.4 (3.8-10.6) k/uL RBC 4.71 (3.80-5.40) m/uL Hgb 13.9 (11.4-16.0) gm/dL Hct 46.1 H (34.0-46.0) % MCV 98.0 (80.0-100.0) fL MCH 29.6 (25.0-35.0) pg MCHC 30.2 L (31.0-37.0) g/dL RDW 12.9 (11.5-15.5) % Plt Count 268 (150-450) k/uL MPV 10.4 Neutrophils % 67 % Lymphocytes % 23 % Monocytes % 6 % Eosinophils % 2 % Basophils % 1 % Neutrophils # 5.6 (1.3-7.7) k/uL Lymphocytes # 1.9 (1.0-4.8) k/uL Monocytes # 0.5 (0-1.0) k/uL Eosinophils # 0.2 (0-0.7) k/uL Basophils # 0.1 (0-0.2) k/uL Hypochromasia Slight PT 11.4 (10.0-12.5) sec INR 1.0 (<1.2) APTT 23.0 (22.0-30.0) sec Sodium 134 L (137-145) mmol/L Potassium 4.8 (3.5-5.1) mmol/L Chloride 102 (98-107) mmol/L Carbon Dioxide 28 (22-30) mmol/L Anion Gap 4 mmol/L BUN 21 H (7-17) mg/dL Creatinine 0.65 (0.52-1.04) mg/dL Est GFR (CKD-EPI)AfAm >90 (>60 ml/min/1.73 sqM) Est GFR (CKD-EPI)NonAf 90 (>60 ml/min/1.73 sqM) Glucose 222 H (74-99) mg/dL Calcium 9.5 (8.4-10.2) mg/dL Total Bilirubin 0.5 (0.2-1.3) mg/dL AST 48 H (14-36) U/L ALT 39 H (4-34) U/L Alkaline Phosphatase 104 (38-126) U/L Creatine Kinase 75 (30-135) U/L Troponin I (0.000-0.034) ng/mL Total Protein 7.0 (6.3-8.2) g/dL Albumin 4.3 (3.5-5.0) g/dL 09/27/24 Range/Units 16:14 WBC (3.8-10.6) k/uL RBC (3.80-5.40) m/uL Hgb (11.4-16.0) gm/dL Hct (34.0-46.0) % MCV (80.0-100.0) fL MCH (25.0-35.0) pg MCHC (31.0-37.0) g/dL RDW (11.5-15.5) % Plt Count (150-450) k/uL MPV Neutrophils % % Lymphocytes % % Monocytes % % Eosinophils % % Basophils % % Neutrophils # (1.3-7.7) k/uL Lymphocytes # (1.0-4.8) k/uL Monocytes # (0-1.0) k/uL Eosinophils # (0-0.7) k/uL Basophils # (0-0.2) k/uL Hypochromasia PT (10.0-12.5) sec INR (<1.2) APTT (22.0-30.0) sec Sodium (137-145) mmol/L Potassium (3.5-5.1) mmol/L Chloride (98-107) mmol/L Carbon Dioxide (22-30) mmol/L Anion Gap mmol/L BUN (7-17) mg/dL Creatinine (0.52-1.04) mg/dL Est GFR (CKD-EPI)AfAm (>60 ml/min/1.73 sqM) Est GFR (CKD-EPI)NonAf (>60 ml/min/1.73 sqM) Glucose (74-99) mg/dL Calcium (8.4-10.2) mg/dL Total Bilirubin (0.2-1.3) mg/dL AST (14-36) U/L ALT (4-34) U/L Alkaline Phosphatase (38-126) U/L Creatine Kinase (30-135) U/L Troponin I 0.053 H* (0.000-0.034) ng/mL Total Protein (6.3-8.2) g/dL Albumin (3.5-5.0) g/dL Disposition Clinical Impression: Decreased vision Disposition: ADMITTED IP TO THIS HOSP Is patient prescribed a controlled substance at d/c from ED?: No Referrals: Cliff Whitman MD [Primary Care Provider] - 1-2 days Time of Disposition: 20:36
[2024-09-27] MEDS: ASPIRIN 325 MG TAB PO STA (21:27)
--- NOTE | 2024-09-28 07:04 | US ---
EXAMINATION TYPE: US carotid duplex BILAT DATE OF EXAM: 09/27/2024 COMPARISON: NONE CLINICAL INDICATION: Female, 73 years old with history of stenosis; patient states right sided vision loss Additional History: .... TECHNIQUE: Grayscale, color Doppler and spectral Doppler evaluation of the bilateral carotid systems and vertebral arteries. Indirect Doppler criteria was utilized. FINDINGS: EXAM MEASUREMENTS: RIGHT: Peak Systolic Velocity (PSV) cm/sec ----- Right CCA: 64.7 ----- Right ICA: 80.1 ----- Right ECA: 74.6 ICA/CCA ratio: 1.2 RIGHT: End Diastole cm/sec ----- Right CCA: 9.8 ----- Right ICA: 17.5 ----- Right ECA: 7.6 LEFT: Peak Systolic Velocity (PSV) cm/sec ----- Left CCA: 68.5 ----- Left ICA: 108.6 ----- Left ECA: 65.9 ICA/CCA ratio: 1.6 LEFT: End Diastole cm/sec ----- Left CCA: 14.1 ----- Left ICA: 25.8 ----- Left ECA: 7.6 VERTEBRALS (direction of flow): Right Vertebral: Antegrade Left Vertebral: Antegrade Rhythm: Normal [employer] APPELLATE CLERK NOTES: Plaque seen bilaterally, greater on right than left. No elevated velocities seen Color Doppler imaging shows patency with blood flow throughout the carotid artery. Spectral waveforms are within normal limits. IMPRESSION: Right: Less than 50% stenosis of the carotid bifurcation. Left: Less than 50% stenosis of the carotid bifurcation. Criteria for Assigning % of Stenosis / Diameter reduction (Estimation based on the indirect measurements of the internal carotid artery velocities (ICA PSV). 1. Normal (no stenosis)=ICA PSV < 125 cm/s: ratio < 2.0: ICA EDV<40 cm/s. 2. Less than 50% stenosis=ICA PSV < 125 cm/s: ratio < 2.0: ICA EDV<40 cm/s. 3. 50 to 69% stenosis=ICA PSV of 125 to 230 cm/s: ration 2.0 ? 4.0: ICA EDV 40-100 cm/s. 4. Greater than 70% stenosis to near occlusion= ICA PSV > 230 cm/s: ratio > 4.0: ICA EDV > 100 cm/s. 5. Near occlusion= ICA PSV velocities may be low or undetectable: variable ratio and ICA EDV. 6. Total occlusion=unable to detect flow. [facility], , 09/28/2024 7:02 AM
[2024-09-28] MEDS ORDERED: DEXTROSE 50% SYRINGE 50 ML IVP PRN ×2 (07:26)
[2024-09-28] MEDS ORDERED: SUCRALFATE 1 GM TAB PO PRN (07:36)
[2024-09-28 07:51] LABS: Glucose,Whole Blood 108 mg/dL (70-110)
[2024-09-28] MEDS: INSULIN LISPRO (HumaLOG) 100 UNIT/ML 10 mL VL SQ SCH (07:52)
[2024-09-28 08:29] LABS: African American GFR (CKD) >90 (>60 ml/min/1.73 sqM); Anion Gap 3 mmol/L; Blood Urea Nitrogen 19 mg/dL (7-17); Calcium 8.9 mg/dL (8.4-10.2); Carbon Dioxide 34 mmol/L (22-30); Chloride 101 mmol/L (98-107); Glucose 118 mg/dL (74-99); Non-African American GFR(CKD) >90 (>60 ml/min/1.73 sqM); Potassium 4.4 mmol/L (3.5-5.1); Sodium 138 mmol/L (137-145)
[2024-09-28 08:44] LABS: Chol/HDL Ratio 1.85 Ratio; LDL Cholesterol,Calculated 45.6 mg/dL (0.0-131.0); VLDL Calculation 12.16 mg/dL (5.00-40.00)
--- NOTE | 2024-09-28 10:03 | P.HPIM ---
History of Present Illness H&P Date: 09/28/24 Patient is a 73-year-old female with a history of hyperlipidemia, pancreatic cancer status post Whipple surgery and renal cancer status post left nephrectomy presents to the ER with concerns of vision changes in her right eye on the afternoon of 09/27/2024. Patient reports that she was celebrating her wedding anniversary with her at restaurant and after she came back home she experienced sudden onset loss of vision in her right eye. Patient has mild medial visual field and no lateral visual field in her right eye. She describes her vision in the right eye as seeing dots of lights with mild blurriness and " things moving around". Patient has a history of cataract surgeries in both eyes 5 years ago. Before coming to the ER, patient saw her eye doctor Dr. Vasquez who assessed her and advised her to get further evaluation for concerns of TIA and/or stroke. Patient denies history of CAD and/or CVA. Denies chest pain, shortness of breath, numbness, weakness, tingling in upper or lower extremities. No recent trauma to the head. Initial laboratory evaluation shows WBC 8.4, hemoglobin 13.9, platelet count 268, sodium 134, potassium 4.8, BUN 21, creatinine 0.61, serum glucose 222, AST 48, ALT 39, troponin I 0.043 (subsequently 0.066), triglycerides 60.8, total cholesterol 126, LDL 45.6, HDL 68.20, Chest x-ray shows no acute cardiopulmonary disease. CT brain shows no acute intracranial hemorrhage or midline shift. EKG shows normal sinus rhythm with ventricular rate of 64 bpm, CA interval 137, QRS duration 89, QTc 392. Poor R wave progression. No Q waves noted. Carotid Doppler ultrasound is negative. Vital signs on arrival shows temperature 98.0 F, pulse rate 67, blood pressure 158/82, respirate 18, oxygen saturation 96% on room air. Review of systems: Pertinent positives and negatives as discussed in HPI, a complete review of systems was performed and all other systems are negative. Social history: Non-smoker, occasional drinker Family History: History of CAD and CVA in family Physical examination: Vital signs reviewed General: non toxic, no distress, appears at stated age, overweight Derm: no unusual rashes/lesions, warm Head: atraumatic, normocephalic, symmetric Eyes: Right ipsilateral hemianopsia with decreased visual acuity in nasal visual field. Left eye is normal. EOMI, no lid lag, anicteric sclera, PERRLA ENT: Nose and ears atraumatic Neck: No cervical lymphadenopathy, trachea midline, supple Mouth: no lip lesion, mucus membranes moist Cardiovascular: S1S2 reg, no murmur, positive dorsalis pedis pulse bilateral, no edema Lungs: CTA bilateral, no rhonchi, no rales, no accessory muscle use Abdominal: soft, nontender to palpation, no guarding Ext: muscle strength 5 out of 5 in all 4 extremities grossly, no gross muscle atrophy, no contractures, Neuro: CN II-XI grossly intact, no gross focal neuro deficits Psych: Alert, oriented, appropriate affect Assessment/Plan: This is a Patient is a 73-year-old female with a history of hyperlipidemia, pancreatic cancer status post Whipple surgery and renal cancer status post left nephrectomy presents to the ER with concerns of vision changes in her right eye on the afternoon of 09/27/2024. . Case was discussed with the Emergency Room provider and decision was made to admit the patient for acute vision loss, rule out stroke. Labs and images: Laboratory evaluation shows WBC 8.4, hemoglobin 13.9, platelet count 268, sodium 134, potassium 4.8, BUN 21, creatinine 0.61, serum glucose 222, AST 48, ALT 39, troponin I 0.043 (subsequently 0.066), triglycerides 60.8, total cholesterol 126, LDL 45.6, HDL 68.20, Chest x-ray shows no acute cardiopulmonary disease. CT brain shows no acute intracranial hemorrhage or midline shift. EKG shows normal sinus rhythm with ventricular rate of 64 bpm, CA interval 137, QRS duration 89, QTc 392. Poor R wave progression. No Q waves noted. Carotid Doppler ultrasound is negative. Vital signs on arrival shows temperature 98.0 F, pulse rate 67, blood pressure 158/82, respirate 18, oxygen saturation 96% on room air. Active problems: #Acute right vision changes, rule out stroke #History of bilateral cataract surgery NIHSS is [address] brain, carotid Doppler ultrasound is negative Order echocardiogram with bubble study Atorvastatin 20 mg once daily Aspirin 81 mg once daily Consult Neurology Order MRI of the brain without contrast Neurochecks PT/OT #Elevated troponin level Consult cardiology Echocardiogram as above Lipitor and aspirin as above Cardiac telemetry Lipid panel done with results as above #Hyperglycemia Sliding scale insulin and Accu-Cheks HbA1c Lantus 6 units SQ at bedtime Monitor for hypoglycemia Chronic: #History of pancreatic and renal cancer status post Whipple surgery and left nephrostomy Resume Protonix 40 mg p.o. at bedtime, Emanuel Pap DVT prophylaxis: Subcu heparin GI prophylaxis: Protonix F: None E: Replete as needed N: Heart healthy diet A: Ambulatory baseline The patient is admitted with an anticipated more than than 2 midnight stay for evaluation of acute vision changes and elevated troponin CODE STATUS: Full code Discussed with: Patient Anticipated discharge place: Pending clinical course Dictation was produced using [employer] dictation software. Please excuse any grammatical, word or spelling errors. Attestation I have seen and examined this patient with my resident , discussed the same with the resident/DANIEL, and agree with the dictator's assessment and plan as written GENERAL: The patient is alert and oriented x3, not in any acute distress. Well developed, well nourished. HEENT: Pupils are round and equally reacting to light. EOMI. No scleral icterus. Reduced vision right eye, ipsilateral nasal hemianopsia CARDIOVASCULAR: S1 and S2 present. No murmurs, rubs, or gallops. PULMONARY: Chest is clear to auscultation, no wheezing or crackles. ABDOMEN: Soft, nontender, nondistended, normoactive bowel sounds. No palpable organomegaly. MUSCULOSKELETAL: No joint swelling or deformity. EXTREMITIES: No cyanosis, clubbing, or pedal edema. NEUROLOGICAL: Gross neurological examination did not reveal any focal deficits. SKIN: No rashes. Dr. Stewart monique Past Medical History Past Medical History: Cancer, Diabetes Mellitus Additional Past Medical History / Comment(s): kidney cancer CA, with pancreas mets, regrowth in nephrectomy bed. History of Any Multi-Drug Resistant Organisms: None Reported Past Surgical History: Hysterectomy, Orthopedic Surgery Additional Past Surgical History / Comment(s): left kidney nephrectomy, ooporectomy, whipple procedure, breast biopsy, Past Anesthesia/Blood Transfusion Reactions: No Reported Reaction Past Psychological History: No Psychological Hx Reported Smoking Status: Former smoker Past Alcohol Use History: None Reported Past Drug Use History: None Reported - Past Family History Mother Family Medical History: Cancer Medications and Allergies Home Medications Medication Instructions Recorded Confirmed Type Insulin Aspart [NovoLOG Flexpen] See Protocol SQ AC-TID 07/27/18 09/28/24 History Lipase/Protease/Amylase [Layne Ni 1 cap PO DIRECTED PRN MDD 9 07/27/18 09/28/24 History 36,000 Unit Capsule] capsules Lipase/Protease/Amylase [Layne Ni 2 units PO TID-W/MEALS 07/27/18 09/28/24 History 36,000 Unit Capsule] Insulin Glargine,Hum.rec.anlog 18 units SQ DAILY@0730 05/30/20 09/28/24 History [Toujeo Solostar] Pantoprazole [Protonix] 40 mg PO MOWEFR 05/30/20 09/28/24 History Ergocalciferol [Vitamin D2 (1250 1,250 mcg PO MO 09/28/24 09/28/24 History Mcg = 37672 Iu)] Multivit with Calcium,Iron,Min 1 tab PO DAILY 09/28/24 09/28/24 History [Women's Multivitamin] Aspirin 81 mg PO DAILY #60 tab 10/01/24 Rx Atorvastatin [Lipitor] 40 mg PO HS #60 tab 10/01/24 Rx Clopidogrel [Plavix] 75 mg PO DAILY #17 tab 10/01/24 Rx Allergies Allergy/AdvReac Type Severity Reaction Status Date / Time Penicillins Allergy Rash/Hives Verified 09/28/24 09:00 Sulfa (Sulfonamide Allergy photophobic Verified 09/28/24 09:00 Antibiotics) and eye burning sulfamethoxazole AdvReac migraine Verified 09/28/24 09:00 [From Bactrim] headache trimethoprim [From Bactrim] AdvReac migraine Verified 09/28/24 09:00 headache Physical Exam Vitals: Vital Signs Temp Pulse Resp BP Pulse Ox 09/28/24 05:33 54 L 18 137/58 98 09/28/24 02:07 61 18 183/85 98 09/28/24 00:00 97.6 F 65 16 161/71 97 09/27/24 15:52 98.0 F 67 18 158/82 96 Intake and Output 09/27/24 09/28/24 09/28/24 22:59 06:59 14:59 Other: # Voids 1 Weight 79.379 kg Results CBC & Chem 7: 09/30/24 05:51 10/01/24 08:26 Labs: Abnormal Lab Results - Last 24 Hours (Table) 09/27/24 09/27/24 09/27/24 Range/Units 16:14 16:14 16:14 Hct 46.1 H (34.0-46.0) % MCHC 30.2 L (31.0-37.0) g/dL Sodium 134 L (137-145) mmol/L BUN 21 H (7-17) mg/dL Glucose 222 H (74-99) mg/dL AST 48 H (14-36) U/L ALT 39 H (4-34) U/L Troponin I 0.053 H* (0.000-0.034) ng/mL
[2024-09-28] MEDS: HEPARIN SODIUM,PORCINE 5,000 UNIT/ML 1 ML VIAL SQ SCH (10:09)
[2024-09-28] MEDS: ASPIRIN 325 MG TAB PO SCH (10:09)
[2024-09-28] MEDS: ATORVASTATIN 80 MG TAB PO SCH (10:11)
--- NOTE | 2024-09-28 12:14 | P.CRDCN ---
History of Present Illness Consult date: 09/28/24 Reason for Consult (text): Elevated troponin History of present illness: This is a 73-year-old female patient of Dr. Vizcarra with past medical history of pancreatic cancer status post Whipple procedure in February 2018, left kidney nephrectomy, diabetes mellitus type 1, dyslipidemia, CAD by CT scan. We have been asked to evaluate the patient for elevated troponins. Patient states that she developed difficulty with her vision with sudden loss of vision to her right eye. She does not have any chest pain, shortness of breath, lightheadedness or dizziness. Patient has been seen in the ER, admitted for further neuro workup.Blood pressure 142/57, heart rate 63, pulse ox 98% on room air. Patient is seen today in the emergency center waiting for bed on the cardiac stepdown unit. Consult is in place for neurology. -EKG: Sinus rhythm with no acute ST-T wave changes. Auch -Chest x-ray: No acute process. -Carotid duplex: 50% stenosis of the bilateral carotid bifurcations. -CT brain: No acute intracranial hemorrhage or midline shift. -Laboratory studies: WBC 8.4, hemoglobin 13.9, potassium 4.4, BUN 19 and creatinine 0.61. Troponin 0.053 and 0.063. C-reactive protein less than 0.5. Triglycerides 60, cholesterol 126, LDL 45. -Home cardiac medications: Atorvastatin 20 mg at bedtime. -Echocardiogram performed in the office on 08/27/2024: EF 55 to 60%, mild left ventricular hypertrophy, aortic valve is calcified, mild mitral regurgitation, mild tricuspid regurgitation, normal PASP of 29. -Lexiscan Cardiolite stress test performed in 2020 was nondiagnostic. No evidence of stress-induced ischemia perfusion imaging. Review Of Systems: At the time of my exam: CONSTITUTIONAL: Denies fever or chills. HEENT: Denies blurred vision, vision changes, or eye pain. Denies hemoptysis CARDIOVASCULAR: Denies chest pain. Denies orthopnea. Denies PND. Denies palpitations RESPIRATORY: Denies shortness of breath. GASTROINTESTINAL: Denies abdominal pain. Denies nausea or vomiting. HEMATOLOGIC: Denies bleeding disorders. GENITOURINARY: Denies any blood in urine. SKIN: Denies puritis. Denies rash. Physical examination: Gen: This is a 73-year-old female in no acute distress. VS: reviewed HEENT: Head is atraumatic, normocephalic. Pupils equal, round. Sclerae is anicteric. NECK: Supple. No JVD. LUNGS: Clear to auscultation. No wheezes or rhonchi. No intercostal retractions. HEART: Regular rate and rhythm. No murmur. ABDOMEN: Soft No tenderness. EXTREMITIES: No pedal edema. No calf tenderness. NEUROLOGICAL: Patient is awake, alert and oriented x3. Assessment: Visual loss in the right eye Elevated troponins, flat pattern, not indicative of acute coronary syndrome Dyslipidemia Diabetes mellitus type 1 History of pancreatic cancer status post Whipple History of left nephrectomy Plan: Resume patient's home cardiac medications We will obtain the report of stress test done in August from the office Obtain 2-D echocardiogram and Doppler study to assess cardiac structure and function Further recommendations to follow based upon clinical course Thank you kindly for this consultation. Nurse practitioner note has been reviewed, I agree with documented findings and plan of care. Patient was seen and examined. Past Medical History Past Medical History: Cancer, Diabetes Mellitus Additional Past Medical History / Comment(s): kidney cancer CA, with pancreas mets, regrowth in nephrectomy bed. History of Any Multi-Drug Resistant Organisms: None Reported Past Surgical History: Hysterectomy, Orthopedic Surgery Additional Past Surgical History / Comment(s): left kidney nephrectomy, ooporectomy, whipple procedure, breast biopsy, Past Anesthesia/Blood Transfusion Reactions: No Reported Reaction Past Psychological History: No Psychological Hx Reported Smoking Status: Former smoker Past Alcohol Use History: None Reported Past Drug Use History: None Reported - Past Family History Mother Family Medical History: Cancer Medications and Allergies Home Medications Medication Instructions Recorded Confirmed Type Insulin Aspart [NovoLOG Flexpen] See Protocol SQ AC-TID 07/27/18 09/28/24 History Lipase/Protease/Amylase [Layne Ni 1 cap PO DIRECTED PRN MDD 9 07/27/18 09/28/24 History 36,000 Units Capsule] capsules Lipase/Protease/Amylase [Layne Ni 2 units PO TID-W/MEALS 07/27/18 09/28/24 History 36,000 Units Capsule] Insulin Glargine,Hum.rec.anlog 18 units SQ DAILY@0730 05/30/20 09/28/24 History [Toujeo Solostar] Pantoprazole [Protonix] 40 mg PO MOWEFR 05/30/20 09/28/24 History Atorvastatin [Lipitor] 20 mg PO HS 09/28/24 09/28/24 History Ergocalciferol [Vitamin D2 (1250 1,250 mcg PO MO 09/28/24 09/28/24 History Mcg = 29528 Iu)] Multivit with Calcium,Iron,Min 1 tab PO DAILY 09/28/24 09/28/24 History [Women's Multivitamin] Allergies Allergy/AdvReac Type Severity Reaction Status Date / Time Penicillins Allergy Rash/Hives Verified 09/28/24 09:00 Sulfa (Sulfonamide Allergy photophobic Verified 09/28/24 09:00 Antibiotics) and eye burning sulfamethoxazole AdvReac migraine Verified 09/28/24 09:00 [From Bactrim] headache trimethoprim [From Bactrim] AdvReac migraine Verified 09/28/24 09:00 headache Physical Exam Vitals: Vital Signs Temp Pulse Resp BP Pulse Ox 09/28/24 10:00 63 20 142/57 98 09/28/24 08:02 98 09/28/24 07:55 56 L 20 154/66 98 09/28/24 05:33 54 L 18 137/58 98 09/28/24 02:07 61 18 183/85 98 09/28/24 00:00 97.6 F 65 16 161/71 97 09/27/24 15:52 98.0 F 67 18 158/82 96 Intake and Output 09/27/24 09/28/24 09/28/24 22:59 06:59 14:59 Other: # Voids 1 Weight 79.379 kg Results 09/27/24 16:14 09/28/24 07:43 Cardiac Enzymes 09/27/24 09/27/24 09/28/24 Range/Units 16:14 16:14 07:43 AST 48 H (14-36) U/L Troponin I 0.053 H* 0.066 H* (0.000-0.034) ng/mL Coagulation 09/27/24 Range/Units 16:14 PT 11.4 (10.0-12.5) sec APTT 23.0 (22.0-30.0) sec Lipids 09/28/24 Range/Units 05:31 Triglycerides 60.80 (0.00-149.00) mg/dL Cholesterol 126.00 (0.00-200.00) mg/dL HDL Cholesterol 68.20 H (40.00-60.00) mg/dL Cholesterol/HDL Ratio 1.85 Ratio CBC 09/27/24 Range/Units 16:14 WBC 8.4 (3.8-10.6) k/uL RBC 4.71 (3.80-5.40) m/uL Hgb 13.9 (11.4-16.0) gm/dL Hct 46.1 H (34.0-46.0) % Plt Count 268 (150-450) k/uL Comprehensive Metabolic Panel 09/27/24 09/28/24 Range/Units 16:14 07:43 Sodium 134 L 138 (137-145) mmol/L Potassium 4.8 4.4 (3.5-5.1) mmol/L Chloride 102 101 (98-107) mmol/L Carbon Dioxide 28 34 H (22-30) mmol/L BUN 21 H 19 H (7-17) mg/dL Creatinine 0.65 0.61 (0.52-1.04) mg/dL Glucose 222 H 118 H (74-99) mg/dL Calcium 9.5 8.9 (8.4-10.2) mg/dL AST 48 H (14-36) U/L ALT 39 H (4-34) U/L Alkaline Phosphatase 104 (38-126) U/L Total Protein 7.0 (6.3-8.2) g/dL Albumin 4.3 (3.5-5.0) g/dL Current Medications Generic Name Dose Route Start Last Admin Trade Name Freq PRN Reason Stop Dose Admin Lipase/Protease/Amylase 2 each 09/28/24 07:45 Lipase 20,000/Protease 63,000/Amylase 84,000 PO QID PRN With Snacks Lipase/Protease/Amylase 4 each 09/28/24 12:30 Lipase 20,000/Protease 63,000/Amylase 84,000 PO TID-W/MEALS CAMILO Aspirin 325 mg 09/28/24 09:00 09/28/24 10:09 Aspirin 325 Mg Tab PO 325 mg DAILY [facility] Administration Atorvastatin Calcium 20 mg 09/28/24 21:00 Atorvastatin 20 Mg Tab PO HS [facility] Dextrose/Water 25 ml 09/28/24 07:26 Dextrose 50% Syringe 50 Ml IVP PER PROTOCOL PRN Hypoglycemia Protocol Dextrose/Water 50 ml 09/28/24 07:26 Dextrose 50% Syringe 50 Ml IVP PER PROTOCOL PRN Hypoglycemia Protocol Heparin Sodium (Porcine) 5,000 unit 09/28/24 08:00 09/28/24 10:09 Heparin Sodium,Porcine 5,000 Unit/Ml 1 Ml Vial SQ Not Given Q8HR [facility] Insulin Glargine 6 unit 09/28/24 21:00 Insulin Glargine (Lantus) 100 Unit/Ml Syr SQ HS [facility] Insulin Human Lispro 0 unit 09/28/24 07:30 09/28/24 07:52 Insulin Lispro (Humalog) 100 Unit/Ml 10 Ml Vl SQ Not Given ACHS [facility] Protocol Pantoprazole Sodium 40 mg 09/28/24 21:00 Pantoprazole 40 Mg Tablet PO HS [facility] Sucralfate 1 gm 09/28/24 07:36 Sucralfate 1 Gm Tab PO BID PRN Indigestion Intake and Output 09/27/24 09/28/24 09/28/24 22:59 06:59 14:59 Other: # Voids 1 Weight 79.379 kg 09/27/24 16:14 09/28/24 07:43
--- NOTE | 2024-09-28 12:50 | P.CNNES ---
History of Present Illness Consult date: 09/28/24 Requesting physician: Julio Henderson Reason for Consult: cva work-up, decreased vision History of Present Illness: This is a 73-year-old woman who presents the emergency department because of vision loss over the right eye. She is accompanied with her . She stated that her symptoms began Tuesday night at 9 PM and she noticed that she could not see over the medial half and some part of lateral half of the right eye and it was sudden onset. She denies any headache associate with episode. Denies any weakness, numbness, difficulty swallowing speech difficulty. She denies any history of stroke. She denies being on any antiplatelet. She denies any history of A-fib. She called her eyedotter and she was evaluated by her eyedotter yesterday, Dr. Vasquez and he recommended the patient to come to the hospital for stroke workup. The patient her eyedotter felt there is a decrease blood supply to the eye according to her. Per the ED note it seems the patient was only able to see 20% of the vision of the right eye and it seems their impression was central retinal artery occlusion. Left eye is not affected. Patient states that she does have headaches that are sporadic when her diabetes gets out of control. She is on Lipitor 20 mg daily. Some of the workup during this hospital visit consisted of: Blood pressure is systolic in the range of 130s to 180s and diastolic 50s to 80s. Troponin is 0.053 and up to 0.066 Lipid panel is triglycerides 60, cholesterol is 126, LDL is [address] head is reported as no acute intracranial hemorrhage or midline shift. I personally reviewed the CT and there is no acute or subacute process. Carotid duplex is reported as less than 50% stenosis of carotid bifurcation Review of Systems As per HPI. Past Medical History Past Medical History: Cancer, Diabetes Mellitus Additional Past Medical History / Comment(s): kidney cancer CA, with pancreas me ts, regrowth in nephrectomy bed. History of Any Multi-Drug Resistant Organisms: None Reported Past Surgical History: Hysterectomy, Orthopedic Surgery Additional Past Surgical History / Comment(s): left kidney nephrectomy, oop orectomy, whipple procedure, breast biopsy, Past Anesthesia/Blood Transfusion Reactions: No Reported Reaction Past Psychological History: No Psychological Hx Reported Smoking Status: Former smoker Past Alcohol Use History: None Reported Past Drug Use History: None Reported - Past Family History Mother Family Medical History: Cancer Medications and Allergies Home Medications Medication Instructions Recorded Confirmed Type Insulin Aspart [NovoLOG Flexpen] See Protocol SQ AC-TID 07/27/18 09/28/24 History Lipase/Protease/Amylase [Layne Ni 1 cap PO DIRECTED PRN MDD 9 07/27/18 09/28/24 History 36,000 Units Capsule] capsules Lipase/Protease/Amylase [Layne Ni 2 units PO TID-W/MEALS 07/27/18 09/28/24 History 36,000 Units Capsule] Insulin Glargine,Hum.rec.anlog 18 units SQ DAILY@0730 05/30/20 09/28/24 History [Toujeo Solostar] Pantoprazole [Protonix] 40 mg PO MOWEFR 05/30/20 09/28/24 History Atorvastatin [Lipitor] 20 mg PO HS 09/28/24 09/28/24 History Ergocalciferol [Vitamin D2 (1250 1,250 mcg PO MO 09/28/24 09/28/24 History Mcg = 05318 Iu)] Multivit with Calcium,Iron,Min 1 tab PO DAILY 09/28/24 09/28/24 History [Women's Multivitamin] Allergies Allergy/AdvReac Type Severity Reaction Status Date / Time Penicillins Allergy Rash/Hives Verified 09/28/24 09:00 Sulfa (Sulfonamide Allergy photophobic Verified 09/28/24 09:00 Antibiotics) and eye burning sulfamethoxazole AdvReac migraine Verified 09/28/24 09:00 [From Bactrim] headache trimethoprim [From Bactrim] AdvReac migraine Verified 09/28/24 09:00 headache Physical Examination - Vital Signs Vital Signs: Vital Signs Temp Pulse Resp BP Pulse Ox 09/28/24 10:00 63 20 142/57 98 09/28/24 08:02 98 09/28/24 07:55 56 L 20 154/66 98 09/28/24 05:33 54 L 18 137/58 98 09/28/24 02:07 61 18 183/85 98 09/28/24 00:00 97.6 F 65 16 161/71 97 09/27/24 15:52 98.0 F 67 18 158/82 96 Intake and Output 09/27/24 09/28/24 09/28/24 22:59 06:59 14:59 Other: # Voids 1 Weight 79.379 kg GENERAL: The patient is lying in bed and is not in acute distress. NEUROLOGICAL: Higher mental function: The patient is awake, alert, oriented to self, place and time. Patient is following commands. No aphasia and no neglect. Cranial nerves: The pupils are round, 4mm, equal and reactive to light and accommodation. Visual barlow is unable to see medial half of the right eye and right upper quadrant but otherwise was able to see out of the right lower quandrant of right eye and full on the left. Extraocular movement is intact no nystagmus is noted. Facial sensation is normal to touch throughout. The facial strength is normal throughout. Hearing is normal bilaterally to hand rub. Tongue is midline and moved [id number] without any difficulty. No dysarthria is noted. Shoulder shrug is normal bilaterally. Motor: The strength is 5 over 5 throughout. Normal tone and bulk. Cerebellum: Normal finger to nose heel to das bilaterally. Sensation: Sensation is normal to touch throughout. Reflexes (right/left): 2+ throughout. Plantars are downgoing bilaterally. Results - Laboratory Findings CBC and BMP: 09/27/24 16:14 09/28/24 07:43 Abnormal Lab Findings: Abnormal Labs 09/27/24 09/27/24 09/27/24 16:14 16:14 16:14 Hct 46.1 H MCHC 30.2 L Sodium 134 L Carbon Dioxide BUN 21 H Glucose 222 H AST 48 H ALT 39 H Troponin I 0.053 H* HDL Cholesterol 09/28/24 09/28/24 09/28/24 05:31 07:43 07:43 Hct MCHC Sodium Carbon Dioxide 34 H BUN 19 H Glucose 118 H AST ALT Troponin I 0.066 H* HDL Cholesterol 68.20 H Assessment and Plan Assessment: This is a 73-year-old woman who presented emergency department because of visual loss out of the right eye. Her symptoms began this Tuesday night and she was evaluated by eyedotter yesterday and her to come to the hospital for concern for stroke. Likely Acute ischemic stroke. Has visual loss out of the right eye (unable to see out of the medial and right quadrant). No IV Thromoblytic since outside the window and risk outweigh benefit. Hypertension urgency Elevated troponin Ongoing DM Remote tobacco use Plan: Patient was given aspirin 325mg once in the ED and was started on aspirin 325mg daily by ED team. I lowered the aspirin to 81 mg and started the patient in addition to Plavix 75 mg daily. Prior to this the patient was not on any antiplatelet. Recommend dual antiplatelet for 21 days for strokes and after that to be only on aspirin indefinitely. Patient Lipitor 20 mg nightly was resumed and I increased it to 40 mg nightly for secondary stroke prophylaxis MRI of the brain, 2D echo and hemoglobin A1c is ordered and is pending I ordered TSH and ESR. Continue neurochecks Cardiac monitoring PT OT and INSURANCE OPERATIONS REP are not consulted since patient does not have any focal deficit other than the visual disturbance. For the elevated troponin cardiology is consulted Will defer the rest of the medical management to primary other specialist For DVT prophylaxis the patient is on subcu heparin Plan discussed with the patient and her was at bedside Thank you for the consultation Dr. Montoya will resume neurology service tomorrow A.M. Time with Patient: Greater than 30
[2024-09-28 13:38] LABS: Glucose,Whole Blood 136 mg/dL (70-110)
[2024-09-28] MEDS: CLOPIDOGREL 75 MG TAB PO SCH (13:47)
[2024-09-28] MEDS: LIPASE 20,000/PROTEASE 63,000/AMYLASE 84,000 PO SCH (13:48)
--- NOTE | 2024-09-28 17:04 | MR ---
INDICATION: Patient age:Female; 73 years old; Reason for study: Loss of vision; PHH. COMPARISON: CT brain 09/27/2024. TECHNIQUE: Multi planar, multi sequence imaging was performed through the brain without the administr ation intravenous contrast. FINDINGS: The purcell-white junctions, ventricular system, basal cisterns appear unremarkable. Age-appropriate cer ebral parenchymal volume loss. There are 3 small foci of restricted diffusion identified. The first i s within the posterior limb of the right internal capsule and the second is seen within the left caud ate nucleus head and the final's within the left parietal lobe white matter. Corresponding T2/FLAIR h yperintensity. Intracranial arterial flow voids are maintained. Midline structures show no abnormalit y. The susceptibility weighted images demonstrate a couple of susceptibility artifact within the cere bellum from prior hemosiderin deposition. The bone marrow signal is within normal limits. Bilateral aphakia. Mild paranasal sinus disease invol ving the bilateral frontal lobes, ethmoid sinuses, and right maxilla sinus. IMPRESSION: Approximately 3 small foci of restricted diffusion involving the posterior limb of the right internal capsule, the left caudate nucleus head, and the left parietal lobe. Most consistent with acute/subac loida ischemia. Distribution suggests possible embolic phenomenon. [facility], , 09/28/2024 5:02 PM
[2024-09-28 17:25] LABS: Glucose,Whole Blood 221 mg/dL (70-110)
--- NOTE | 2024-09-28 20:23 | CA ---
Transthoracic Echo Report Name: Liliana Petersen Age: 73 Gender: F : 1950 Exam Date: 09/28/2024 10:48 Exam Location: [facility] Ht (in): 61 Wt (lb): 175 Ordering Physician: Darian Burr MD Attending/Referring Phys: Replanting Machine Operator Aiyana Nichols RDCS Procedure CPT: Indications: elevated troponin; neurologic deficit Cardiac Hx: Technical Quality: Good Contrast 1: Agitated Saline Total Dose (mL): 9 Contrast 2: Total Dose (mL): MEASUREMENTS (Male / Female) Normal Values 2D ECHO LV Diastolic Diameter PLAX 4.2 cm 4.2 - 5.9 / 3.9 - 5.3 cm LV Systolic Diameter PLAX 2.5 cm IVS Diastolic Thickness 1.1 cm 0.6 - 1.0 / 0.6 - 0.9 cm LVPW Diastolic Thickness 0.9 cm 0.6 - 1.0 / 0.6 - 0.9 cm LV Relative Wall Thickness 0.5 RV Internal Dim ED PLAX 3.8 cm LA Systolic Diameter LX 3.7 cm 3.0 - 4.0 / 2.7 - 3.8 cm M-MODE Aortic Root Diameter MM 3.2 cm DOPPLER AV Peak Velocity 185.5 cm/s AV Peak Gradient 13.8 mmHg Mitral E Point Velocity 112.8 cm/s Mitral A Point Velocity 131.1 cm/s Mitral E to A Ratio 0.9 MV Deceleration Time 329.2 ms MV E' Velocity 5.3 cm/s Mitral E to MV E' Ratio 21.2 TR Peak Velocity 272.0 cm/s TR Peak Gradient 29.6 mmHg Right Ventricular Systolic Press 39.6 mmHg FINDINGS Left Ventricle Left ventricular ejection fraction is estimated at 55-60 %. Left ventricular cavity size normal. Left ventricular wall thickness normal. Normal left ventricular wall motion. Right Ventricle Moderate right ventricular dilatation. Mild pulmonary hypertension. Right Atrium Normal right atrial size. No right atrial thrombus or mass seen. Negative agitated saline bubble study for right to left shunt. Left Atrium Normal left atrial size. No left atrial thrombus or mass present. Mitral Valve Moderate mitral annular calcification on posterior leaflet. Trace mitral regurgitation. Aortic Valve Trileaflet aortic valve. Aortic valve sclerosis. No aortic valve stenosis or regurgitation. Tricuspid Valve Structurally normal tricuspid valve. Mild tricuspid regurgitation. Pulmonic Valve Structurally normal pulmonic valve. Trace pulmonic regurgitation. Pericardium No pericardial effusion. Aorta Normal size aortic root and proximal ascending aorta. CONCLUSIONS Normal LV systolic function Moderately enlarged RV Aortic sclerosis Mild pulmonary hypertension Previewed by: Dr. Xu Chandler MD (Electronically Signed) Final Date: 28 September 2024 20:22
[2024-09-28 20:28] LABS: Glucose,Whole Blood 209 mg/dL (70-110)
[2024-09-28] MEDS ORDERED: ATORVASTATIN 20 MG TAB PO SCH (21:00)
[2024-09-28] MEDS: PANTOPRAZOLE 40 MG TABLET PO SCH (21:06)
[2024-09-28] MEDS: ATORVASTATIN 20 MG TAB PO SCH (21:06)
[2024-09-28] MEDS: INSULIN GLARGINE (LANTUS) 100 UNIT/ML SYR SQ SCH (21:22)
[2024-09-29 06:00] LABS: Glucose,Whole Blood 179 mg/dL (70-110)
[2024-09-29] MEDS: ASPIRIN 81 MG PO SCH (08:54)
--- NOTE | 2024-09-29 09:32 | P.PN ---
Subjective Progress Note Date: 09/29/24 Reason for Consult (text): Elevated troponin History of present illness: This is a 73-year-old female patient of Dr. Vizcarra with past medical history of pancreatic cancer status post Whipple procedure in February 2018, left kidney nephrectomy, diabetes mellitus type 1, dyslipidemia, CAD by CT scan. We have been asked to evaluate the patient for elevated troponins. Patient states that she developed difficulty with her vision with sudden loss of vision to her right eye. She does not have any chest pain, shortness of breath, lightheadedness or dizziness. Patient has been seen in the ER, admitted for further neuro workup.Blood pressure 142/57, heart rate 63, pulse ox 98% on room air. Patient is seen today in the emergency center waiting for bed on the cardiac stepdown unit. Consult is in place for neurology. -EKG: Sinus rhythm with no acute ST-T wave changes. Auch -Chest x-ray: No acute process. -Carotid duplex: 50% stenosis of the bilateral carotid bifurcations. -CT brain: No acute intracranial hemorrhage or midline shift. -Laboratory studies: WBC 8.4, hemoglobin 13.9, potassium 4.4, BUN 19 and creatinine 0.61. Troponin 0.053 and 0.063. C-reactive protein less than 0.5. Triglycerides 60, cholesterol 126, LDL 45. -Home cardiac medications: Atorvastatin 20 mg at bedtime. -Echocardiogram performed in the office on 08/27/2024: EF 55 to 60%, mild left ventricular hypertrophy, aortic valve is calcified, mild mitral regurgitation, mild tricuspid regurgitation, normal PASP of 29. -Lexiscan Cardiolite stress test performed in 2020 was nondiagnostic. No evidence of stress-induced ischemia perfusion imaging. 09/29 Patient seen and examined on the cardiac stepdown unit. Repeat echocardiogram reveals EF of 55 to 60%, aortic sclerosis, mild pulmonary hypertension. Blood pressure 122/64, heart rate 60, pulse ox 95% on room air. MRI of the brain reveals acute/subacute ischemia concerning for embolic phenomenon. Fourth troponin came back at 0.055. Patient remains without chest pain or chest pressure. Physical examination: Gen: This is a 73-year-old female in no acute distress. VS: reviewed HEENT: Head is atraumatic, normocephalic. Pupils equal, round. Sclerae is anicteric. NECK: Supple. No JVD. LUNGS: Clear to auscultation. No wheezes or rhonchi. No intercostal retractions. HEART: Regular rate and rhythm. No murmur. ABDOMEN: Soft No tenderness. EXTREMITIES: No pedal edema. No calf tenderness. NEUROLOGICAL: Patient is awake, alert and oriented x3. Assessment: Visual loss in the right eye secondary to acute/subacute CVA concerning for embolic phenomenon Elevated troponins, flat pattern, not indicative of acute coronary syndrome Dyslipidemia Diabetes mellitus type 1 History of pancreatic cancer status post Whipple History of left nephrectomy Plan: Continue patient's home cardiac medications We will obtain the report of stress test done in August from the office on Tuesday Schedule patient for ERICA on Tuesday with Dr. Vizcarra Further recommendations to follow based upon clinical course Nurse practitioner note has been reviewed, I agree with documented findings and plan of care. Patient was seen and examined. Objective - Vital Signs Vital signs: Vital Signs Temp 98.2 F 09/28/24 21:30 Pulse 60 09/29/24 02:00 Resp 16 09/29/24 02:00 BP 122/64 09/29/24 02:00 Pulse Ox 95 09/29/24 02:00 FiO2 Intake & Output 09/28/24 09/29/24 09/29/24 18:59 06:59 18:59 Intake Total 540 Balance 540 Weight 79.379 kg Intake: Oral 540 Other: Voiding Method External Catheter # Voids 2 - Labs CBC & Chem 7: 09/27/24 16:14 09/28/24 07:43 Labs: Abnormal Lab Results - Last 24 Hours (Table) 09/28/24 09/28/24 09/28/24 Range/Units 12:55 13:37 17:23 POC Glucose (mg/dL) 136 H 221 H (70-110) mg/dL Hemoglobin A1c (<=6.0) % Troponin I 0.045 H* (0.000-0.034) ng/mL 09/28/24 09/28/24 09/28/24 Range/Units 18:41 18:41 20:25 POC Glucose (mg/dL) 209 H (70-110) mg/dL Hemoglobin A1c 8.0 H (<=6.0) % Troponin I 0.055 H* (0.000-0.034) ng/mL 09/29/24 Range/Units 05:59 POC Glucose (mg/dL) 179 H (70-110) mg/dL Hemoglobin A1c (<=6.0) % Troponin I (0.000-0.034) ng/mL
[2024-09-29 11:33] LABS: Glucose,Whole Blood 257 mg/dL (70-110)
--- NOTE | 2024-09-29 13:50 | P.PN ---
Subjective Progress Note Date: 09/29/24 Hospital Course: Patient is a 73-year-old female with a history of hyperlipidemia, pancreatic cancer status post Whipple surgery and renal cancer status post left nephrectomy presents to the ER with concerns of vision changes in her right eye on the afternoon of 09/27/2024. Patient reports that she was celebrating her wedding anniversary with her at restaurant and after she came back home she e xperienced sudden onset loss of vision in her right eye. Patient has mild medial visual field and no lateral visual field in her right eye. She describes her vision in the right eye as seeing dots of lights with mild blurriness and " things moving around". Patient has a history of cataract surgeries in both eyes 5 years ago. Before coming to the ER, patient saw her eye doctor Dr. Vasquez who assessed her and advised her to get further evaluation for concerns of TIA and/or stroke. Patient denies history of CAD and/or CVA. Denies chest pain, shortness of breath, numbness, weakness, tingling in upper or lower extremities. No recent trauma to the head. Initial laboratory evaluation shows WBC 8.4, hemoglobin 13.9, platelet count 268, sodium 134, potassium 4.8, BUN 21, creatinine 0.61, serum glucose 222, AST 48, ALT 39, troponin I 0.043 (subsequently 0.066), triglycerides 60.8, total cholesterol 126, LDL 45.6, HDL 68.20, Chest x-ray shows no acute cardiopulmonary disease. CT brain shows no acute intracranial hemorrhage or midline shift. EKG shows normal sinus rhythm with ventricular rate of 64 bpm, DE interval 137, QRS duration 89, QTc 392. Poor R wave progression. No Q waves noted. Carotid Doppler ultrasound is negative. Vital signs on arrival shows temperature 98.0 F, pulse rate 67, blood pressure 158/82, respirate 18, oxygen saturation 96% on room air. Subjective: Patient seen and examined at the bedside. No acute events overnight. Patient still continues to have vision loss in her right eye. No other focal neurological deficit. Brain MRI done yesterday Embolic acute/subacute ischemia involving posterior limb of the right internal capsule, the left carotid nucleus head and the left parietal lobe. All Systems reviewed and pertinent positives and negatives noted in HPI, all other symptoms are negative Objective: Vital signs reviewed. General: non toxic, no distress, appears at stated age, overweight Derm: no unusual rashes/lesions, warm Head: atraumatic, normocephalic, symmetric Eyes: Right ipsilateral hemianopsia with decreased visual acuity in nasal visual field. Left eye is normal. EOMI, no lid lag, anicteric sclera, PERRLA ENT: Nose and ears atraumatic Neck: No cervical lymphadenopathy, trachea midline, supple Mouth: no lip lesion, mucus membranes moist Cardiovascular: S1S2 reg, no murmur, positive dorsalis pedis pulse bilateral, no edema Lungs: CTA bilateral, no rhonchi, no rales, no accessory muscle use Abdominal: soft, nontender to palpation, no guarding Ext: muscle strength 5 out of 5 in all 4 extremities grossly, no gross muscle atrophy, no contractures, Neuro: CN II-XI grossly intact, no gross focal neuro deficits Psych: Alert, oriented, appropriate affect Data reviewed today: Labs: No new labs Images: No new images Assessment and Plan: #Acute right vision changes, rule out stroke #History of bilateral cataract surgery NIHSS is [address] brain, carotid Doppler ultrasound is negative Brain MRI done yesterday Embolic acute/subacute ischemia involving posterior limb of the right internal capsule, the left carotid nucleus head and the left parietal lobe. Echocardiogram with bubble study shows LVEF at 55 to 60% with normal LV systolic function. Negative bubble study. Mildly enlarged RV. Atorvastatin 40 mg once daily Aspirin 81 mg once daily and Plavix 75 mg p.o. daily Neurology on board, note reviewed, appreciate recs Neurochecks PT/OT #Elevated troponin level Cardiology on board, note reviewed, appreciate recs Echocardiogram as above Lipitor and aspirin as above Cardiac telemetry Lipid panel done with results as above ERICA on 10/01/2024 #Hyperglycemia Sliding scale insulin and Accu-Cheks HbA1c is 8% Lantus 6 units subcu twice daily Monitor for hypoglycemia Chronic: #History of pancreatic and renal cancer status post Whipple surgery and left nephrostomy Resume Protonix 40 mg p.o. at bedtime, Emanuel Pap DVT prophylaxis: Subcu heparin GI prophylaxis: Protonix F: None E: Replete as needed N: Heart healthy diet A: Ambulatory baseline The patient is admitted with an anticipated more than than 2 midnight stay for evaluation of acute vision changes and elevated troponin CODE STATUS: Full code Discussed with: Patient Anticipated discharge place: Pending clinical course Dictation was produced using [employer] dictation software. Please excuse any grammatical, word or spelling errors. Objective - Vital Signs Vital signs: Vital Signs Temp 98 F 09/29/24 07:00 Pulse 66 09/29/24 12:00 Resp 17 09/29/24 12:00 BP 136/63 09/29/24 12:00 Pulse Ox 95 09/29/24 12:00 FiO2 Intake & Output 09/28/24 09/29/24 09/29/24 18:59 06:59 18:59 Intake Total 540 540 Balance 540 540 Weight 79.379 kg Intake: Oral 540 540 Other: Voiding Method External Catheter Toilet # Voids 2 1 - Labs CBC & Chem 7: 09/27/24 16:14 09/28/24 07:43 Labs: Abnormal Lab Results - Last 24 Hours (Table) 09/28/24 09/28/24 09/28/24 Range/Units 12:55 13:37 17:23 POC Glucose (mg/dL) 136 H 221 H (70-110) mg/dL Hemoglobin A1c (<=6.0) % Troponin I 0.045 H* (0.000-0.034) ng/mL 09/28/24 09/28/24 09/28/24 Range/Units 18:41 18:41 20:25 POC Glucose (mg/dL) 209 H (70-110) mg/dL Hemoglobin A1c 8.0 H (<=6.0) % Troponin I 0.055 H* (0.000-0.034) ng/mL 09/29/24 09/29/24 Range/Units 05:59 11:30 POC Glucose (mg/dL) 179 H 257 H (70-110) mg/dL Hemoglobin A1c (<=6.0) % Troponin I (0.000-0.034) ng/mL
--- NOTE | 2024-09-29 15:50 | P.PN ---
Subjective Progress Note Date: 09/29/24 The patient is a 73-year-old female who was seen in neurologic follow-up on September 29 2024, in cross coverage for Dr. Quiñones, in collaboration with Juju Fierro, via teleneurology. The patient reports no change in her vision this morning. She continues to have loss of vision from the right eye. She does report seeing patterns and squares and dots from both eyes. MRI results are discussed with the patient and her who is present at the bedside at the time of the evaluation. The likelihood of embolic infarct was explained to the patient, in light of the fact that these infarcts are bilate ral. The possibility of atrial fibrillation was briefly discussed with the patient. Patient reports that cardiology has ordered a transesophageal echocardiogram. I advised that I am in favor of this test. Objective - Vital Signs Vital signs: Vital Signs Temp 98 F 09/29/24 07:00 Pulse 66 09/29/24 12:00 Resp 17 09/29/24 12:00 BP 136/63 09/29/24 12:00 Pulse Ox 95 09/29/24 12:00 FiO2 Intake & Output 09/28/24 09/29/24 09/29/24 18:59 06:59 18:59 Intake Total 540 658 Balance 540 658 Weight 79.379 kg Intake: Oral 540 658 Other: Voiding Method External Catheter Toilet # Voids 2 1 - Exam GENERAL: The patient is lying in bed and is not in acute distress. NEUROLOGICAL: Higher mental function: The patient is awake, alert, oriented to self, place and time. Patient is following commands. No aphasia and no neglect. Cranial nerves: The pupils are round, 4mm, equal and reactive to light and accommodation. Visual barlow testing reveals essentially loss of vision from the right eye. It is more profound laterally and in the right lower quadrant. Vision is full on the left. Extraocular movement is intact no nystagmus is noted. Facial sensation is normal to touch throughout. There is no facial asymmetry. Hearing is normal bilaterally to hand rub. Tongue is midline and moved [id number] without any difficulty. No dysarthria is noted. Shoulder shrug is normal bilaterally. Motor: The strength is 5 over 5 throughout. Normal tone and bulk. Cerebellum: Normal finger to nose heel to das bilaterally. Sensation: Sensation is normal to touch throughout. Reflexes (right/left): 2+ throughout. Plantars are downgoing bilaterally. - Labs CBC & Chem 7: 09/27/24 16:14 09/28/24 07:43 Labs: Abnormal Lab Results - Last 24 Hours (Table) 09/28/24 09/28/24 09/28/24 Range/Units 17:23 18:41 18:41 POC Glucose (mg/dL) 221 H (70-110) mg/dL Hemoglobin A1c 8.0 H (<=6.0) % Troponin I 0.055 H* (0.000-0.034) ng/mL 09/28/24 09/29/24 09/29/24 Range/Units 20:25 05:59 11:30 POC Glucose (mg/dL) 209 H 179 H 257 H (70-110) mg/dL Hemoglobin A1c (<=6.0) % Troponin I (0.000-0.034) ng/mL Assessment and Plan Assessment: 1. Bilateral small, acute embolic infarcts involving the posterior limb of the right internal capsule, left caudate head and left parietal lobes-with resultant right-sided visual loss 2. Hypertension urgency 3. Elevated troponin 4. Ongoing DM 5. Remote tobacco use Plan: 1. Agree with transesophageal echocardiogram. If ERICA is negative, recommend placement of loop recorder 2. Agree with dual antiplatelet therapy at this time, likely because of embolic nature, anticoagulation will be necessary 3. Continue control of stroke risk factors Time with Patient: Greater than 30 (40 minutes were spent caring for this patient today including, obtaining history, examining the patient, reviewing imaging, chart documentation, labs, placing orders and creating this note)
[2024-09-29 16:29] LABS: Glucose,Whole Blood 81 mg/dL (70-110)
[2024-09-29 20:18] LABS: Glucose,Whole Blood 210 mg/dL (70-110)
[2024-09-29] MEDS: INSULIN GLARGINE (LANTUS) 100 UNIT/ML SYR SQ SCH (20:19)
[2024-09-30 06:17] LABS: Glucose,Whole Blood 173 mg/dL (70-110)
[2024-09-30 06:43] LABS: Basophils % (A) 1 %; Eosinophils # (A) 0.3 k/uL (0-0.7); Eosinophils % (A) 4 %; HCT 42.6 % (34.0-46.0); Lymphocytes # (A) 2.3 k/uL (1.0-4.8); Lymphocytes % (A) 28 %; MCH 29.8 pg (25.0-35.0); MCHC 30.6 g/dL (31.0-37.0); MCV 97.4 fL (80.0-100.0); Mean Platelet Volume 10.4; Monocytes # (A) 0.5 k/uL (0-1.0); Monocytes % (A) 6 %; Neutrophils # (A) 4.9 k/uL (1.3-7.7); Neutrophils % (A) 60 %; Platelet Count 264 k/uL (150-450); RBC 4.37 m/uL (3.80-5.40); RDW 13.3 % (11.5-15.5); WBC 8.2 k/uL (3.8-10.6)
[2024-09-30 06:56] LABS: African American GFR (CKD) >90 (>60 ml/min/1.73 sqM); Anion Gap 5 mmol/L; Blood Urea Nitrogen 22 mg/dL (7-17); Calcium 8.9 mg/dL (8.4-10.2); Carbon Dioxide 30 mmol/L (22-30); Chloride 102 mmol/L (98-107); Glucose 166 mg/dL (74-99); Non-African American GFR(CKD) 88 (>60 ml/min/1.73 sqM); Potassium 4.1 mmol/L (3.5-5.1); Sodium 137 mmol/L (137-145)
[2024-09-30] MEDS ORDERED: MIDAZOLAM 2 MG/2 ML VIAL IV PRN (10:06)
[2024-09-30] MEDS ORDERED: fentaNYL (PF) 50 MCG/ML 5 ML AMP IVP PRN (10:06)
--- NOTE | 2024-09-30 10:11 | P.PN ---
Subjective Progress Note Date: 09/30/24 Reason for Consult (text): Elevated troponin History of present illness: This is a 73-year-old female patient of Dr. Vizcarra with past medical history of pancreatic cancer status post Whipple procedure in February 2018, left kidney nephrectomy, diabetes mellitus type 1, dyslipidemia, CAD by CT scan. We have been asked to evaluate the patient for elevated troponins. Patient states that she developed difficulty with her vision with sudden loss of vision to her right eye. She does not have any chest pain, shortness of breath, lightheadedness or dizziness. Patient has been seen in the ER, admitted for further neuro workup.Blood pressure 142/57, heart rate 63, pulse ox 98% on room air. Patient is seen today in the emergency center waiting for bed on the cardiac stepdown unit. Consult is in place for neurology. -EKG: Sinus rhythm with no acute ST-T wave changes. Auch -Chest x-ray: No acute process. -Carotid duplex: 50% stenosis of the bilateral carotid bifurcations. -CT brain: No acute intracranial hemorrhage or midline shift. -Laboratory studies: WBC 8.4, hemoglobin 13.9, potassium 4.4, BUN 19 and creatinine 0.61. Troponin 0.053 and 0.063. C-reactive protein less than 0.5. Triglycerides 60, cholesterol 126, LDL 45. -Home cardiac medications: Atorvastatin 20 mg at bedtime. -Echocardiogram performed in the office on 08/27/2024: EF 55 to 60%, mild left ventricular hypertrophy, aortic valve is calcified, mild mitral regurgitation, mild tricuspid regurgitation, normal PASP of 29. -Lexiscan Cardiolite stress test performed in 2020 was nondiagnostic. No evidence of stress-induced ischemia perfusion imaging. 09/29 Patient seen and examined on the cardiac stepdown unit. Repeat echocardiogram reveals EF of 55 to 60%, aortic sclerosis, mild pulmonary hypertension. Blood pressure 122/64, heart rate 60, pulse ox 95% on room air. MRI of the brain reveals acute/subacute ischemia concerning for embolic phenomenon. Fourth troponin came back at 0.055. Patient remains without chest pain or chest pressure. 09/30 Patient seen and examined. Vital signs have been stable, blood pressure 138/69, heart rate 70, pulse ox 96% on room air. Repeat blood work reveals BUN 22 creatinine 0.69. Patient is scheduled for ERICA on Tuesday with Dr. Vizcarra. Physical examination: Gen: This is a 73-year-old female in no acute distress. VS: reviewed HEENT: Head is atraumatic, normocephalic. Pupils equal, round. Sclerae is anicteric. NECK: Supple. No JVD. LUNGS: Clear to auscultation. No wheezes or rhonchi. No intercostal retractions. HEART: Regular rate and rhythm. No murmur. ABDOMEN: Soft No tenderness. EXTREMITIES: No pedal edema. No calf tenderness. NEUROLOGICAL: Patient is awake, alert and oriented x3. Assessment: Visual loss in the right eye secondary to acute/subacute CVA concerning for embolic phenomenon Elevated troponins, flat pattern, not indicative of acute coronary syndrome Dyslipidemia Diabetes mellitus type 1 History of pancreatic cancer status post Whipple History of left nephrectomy Plan: Continue patient's home cardiac medications We will obtain the report of stress test done in August from the office on Tuesday Schedule patient for ERICA on Tuesday with Dr. Vizcarra N.p.o. after midnight Further recommendations to follow based upon clinical course Nurse practitioner note has been reviewed, I agree with documented findings and plan of care. Patient was seen and examined. Objective - Vital Signs Vital signs: Vital Signs Temp 97.9 F 09/30/24 08:00 Pulse 70 09/30/24 08:00 Resp 18 09/30/24 08:00 BP 138/69 09/30/24 08:00 Pulse Ox 96 09/30/24 08:00 FiO2 Intake & Output 09/29/24 09/30/24 09/30/24 18:59 06:59 18:59 Intake Total 1316 540 780 Balance 1316 540 780 Weight 78.9 kg Intake: Oral 1316 540 780 Other: Voiding Method Toilet Toilet Toilet # Voids 3 2 1 - Labs CBC & Chem 7: 09/30/24 05:51 09/30/24 05:51 Labs: Abnormal Lab Results - Last 24 Hours (Table) 09/29/24 09/29/24 09/30/24 Range/Units 11:30 20:16 05:51 MCHC 30.6 L (31.0-37.0) g/dL BUN (7-17) mg/dL Glucose (74-99) mg/dL POC Glucose (mg/dL) 257 H 210 H (70-110) mg/dL 09/30/24 09/30/24 Range/Units 05:51 06:16 MCHC (31.0-37.0) g/dL BUN 22 H (7-17) mg/dL Glucose 166 H (74-99) mg/dL POC Glucose (mg/dL) 173 H (70-110) mg/dL
[2024-09-30 11:21] LABS: Glucose,Whole Blood 220 mg/dL (70-110)
--- NOTE | 2024-09-30 13:59 | P.PN ---
Subjective Progress Note Date: 09/30/24 This is a pleasant 73-year-old female who comes in with complaints of visual disturbances. Today patient continues to report vision loss of the right eye as well as floating dots. She does report improvement to the loose and like vision loss including seeing warped faces water on the ground and smoke, out of her drink. Patient had a brain MRI which reveals a possible embolic phenomenon involving the right internal capsule, the left caudate nucleus and the left parietal lobe. She continues on aspirin Plavix and Lipitor. Patient will be going for a transient esophageal echocardiogram tomorrow. She is hoping for discharge home tomorrow and did discuss the possibility of an event monitor at discharge and patient is agreeable to this plan. Review of Systems Constitutional: Denied any fatigue denied any fever. Cardio vascular: denied any chest pain, palpitations Gastrointestinal: denied any nausea, vomiting, diarrhea Pulmonary: Denied any shortness of breath cough Neurologic denied any new focal deficits All inpatient medications were reviewed and appropriate changes in these medications as dictated in the interval history and assessment and plan. PHYSICAL EXAMINATION: GENERAL: The patient is alert and oriented x3, not in any acute distress. Well developed, well nourished. HEENT: Pupils are round and equally reacting to light. EOMI. No scleral icterus. No conjunctival pallor. Normocephalic, atraumatic. No pharyngeal erythema. No thyromegaly. CARDIOVASCULAR: S1 and S2 present. No murmurs, rubs, or gallops. PULMONARY: Chest is clear to auscultation, no wheezing or crackles. ABDOMEN: Soft, nontender, nondistended, normoactive bowel sounds. No palpable organomegaly. MUSCULOSKELETAL: No joint swelling or deformity. EXTREMITIES: No cyanosis, clubbing, or pedal edema. NEUROLOGICAL: Gross neurological examination did not reveal any focal deficits. SKIN: No rashes. Assessment and plan Vision loss in the right eye secondary to an acute/subacute stroke with brain MRI revealing possible embolic phenomenon Troponin elevation flat pattern with cardiology ruling out acute coronary syndrome History of diabetes mellitus type 1 History of kidney cancer with pancreatic metastasis Status post left nephrectomy Status post Whipple procedure Former smoker Bilateral cataract surgery in the past GI prophylaxis Plan Continue aspirin and Plavix therapy Continue high-dose statin therapy Pending ERICA for tomorrow Neurology and cardiology following The impression and plan of care has been dictated by Matilda Aviles, Nurse Practitioner as directed. Dr. Arlen MD I have performed a history and physical examination and medical decision making of this patient, discussed the same with the dictator, and agree with the dictators assessment and plan as written, documented as a scribe. Based on total visit time, I have performed more than 50% of this visit. Objective - Vital Signs Vital signs: Vital Signs Temp 97.9 F 09/30/24 08:00 Pulse 60 09/30/24 11:37 Resp 16 09/30/24 11:37 BP 122/61 09/30/24 11:37 Pulse Ox 98 09/30/24 11:37 FiO2 Intake & Output 09/29/24 09/30/24 09/30/24 18:59 06:59 18:59 Intake Total 1316 540 900 Balance 1316 540 900 Weight 78.9 kg Intake: Oral 1316 540 900 Other: Voiding Method Toilet Toilet Toilet # Voids 3 2 1 - Labs CBC & Chem 7: 09/30/24 05:51 09/30/24 05:51 Labs: Abnormal Lab Results - Last 24 Hours (Table) 09/29/24 09/30/24 09/30/24 Range/Units 20:16 05:51 05:51 MCHC 30.6 L (31.0-37.0) g/dL BUN 22 H (7-17) mg/dL Glucose 166 H (74-99) mg/dL POC Glucose (mg/dL) 210 H (70-110) mg/dL 09/30/24 09/30/24 Range/Units 06:16 11:20 MCHC (31.0-37.0) g/dL BUN (7-17) mg/dL Glucose (74-99) mg/dL POC Glucose (mg/dL) 173 H 220 H (70-110) mg/dL Assessment and Plan Time with Patient: Less than 30
[2024-09-30] MEDS ORDERED: BENZOCAINE SPRAY 1 EACH MM PRN (16:00)
[2024-09-30 16:09] LABS: Glucose,Whole Blood 204 mg/dL (70-110)
[2024-09-30 20:24] LABS: Glucose,Whole Blood 76 mg/dL (70-110)
[2024-09-30] MEDS: LIPASE 20,000/PROTEASE 63,000/AMYLASE 84,000 PO PRN (21:00)
[2024-10-01 05:54] LABS: Glucose,Whole Blood 265 mg/dL (70-110)
[2024-10-01] MEDS: BENZOCAINE SPRAY 1 CAN TOPICAL ONE (07:25)
[2024-10-01] MEDS: fentaNYL (PF) 50 MCG/1 ML VIAL IVP ONE (07:27)
[2024-10-01] MEDS: MIDAZOLAM 2 MG/2 ML VIAL IVP ONE (07:27)
--- NOTE | 2024-10-01 07:41 | P.PCN ---
Date of Procedure: 10/01/24 Description of Procedure: Indication: TIA Procedure Description: After explaining the procedure to the patient, it's risk and complications, blood pressure, heart rate and O2 saturation were monitored. The throat was sprayed with Cetacaine. Patient received 2 mg intravenous Versed, 50 mcg intravenous fentanyl. The probe was introduced into the esophagus without difficulty. Images were obtained. Following that, the probe was removed. There was no immediate complication. Findings: Left atrial size is mildly dilated, left atrial appendage is normal. Left ventricular size and systolic function are normal. Moderate mitral and is calcification was noted. The aortic valve is a tricuspid valve with fi brocalcific changes and preserved opening. The tricuspid and pulmonic valve appears to be normal. Descending thoracic aorta appears to be normal. No pericardial effusion was noted. Contrast bubble study revealed no shunting across the interatrial septum. Doppler: Pulse wave and color Doppler were obtained, and revealed mild mitral, tricuspid with trace aortic regurgitation, there was no shunting by color Doppler study. Conclusion: 1. Normal ventricular size and systolic function 2. Normal appearance of the left atrial appendage 3. No shunting across the interatrial septum 4. Mild mitral, tricuspid with trace aortic regurgitation 5. No pericardial effusion Duration of sedation 12 minutes
[2024-10-01 08:44] LABS: Glucose,Whole Blood 236 mg/dL (70-110)
[2024-10-01 09:04] LABS: INR 1.1 (<1.2); Prothrombin Time 12.1 sec (10.0-12.5)
[2024-10-01 09:13] LABS: African American GFR (CKD) >90 (>60 ml/min/1.73 sqM); Anion Gap 7 mmol/L; Blood Urea Nitrogen 22 mg/dL (7-17); Calcium 8.7 mg/dL (8.4-10.2); Carbon Dioxide 28 mmol/L (22-30); Chloride 99 mmol/L (98-107); Glucose 285 mg/dL (74-99); Non-African American GFR(CKD) >90 (>60 ml/min/1.73 sqM); Potassium 4.5 mmol/L (3.5-5.1); Sodium 134 mmol/L (137-145)
[2024-10-01] MEDS: SODIUM CHLORIDE 0.9% 1,000 ML IV SCH ×3 (10:18)
[2024-10-01] MEDS: LIDOCAINE 1% INJ 10MG/ML (20 ML MDV) SQ ONE ×3 (11:33)
--- NOTE | 2024-10-01 11:35 | P.PN ---
Subjective HISTORY OF PRESENT ILLNESS: This is a 73-year-old female patient of Dr. Vizcarra with past medical history of pancreatic cancer status post Whipple procedure in February 2018, left kidney nephrectomy, diabetes mellitus type 1, dyslipidemia, CAD by CT scan. We have been asked to evaluate the patient for elevated troponins. Patient states that she developed difficulty with her vision with sudden loss of vision to her right eye. She does not have any chest pain, shortness of breath, lightheadedness or dizziness. Patient has been seen in the ER, admitted for further neuro workup.Blood pressure 142/57, heart rate 63, pulse ox 98% on room air. Patient is seen today in the emergency center waiting for bed on the cardiac stepdown unit. Consult is in place for neurology. -EKG: Sinus rhythm with no acute ST-T wave changes. -Chest x-ray: No acute process. -Carotid duplex: 50% stenosis of the bilateral carotid bifurcations. -CT brain: No acute intracranial hemorrhage or midline shift. -Laboratory studies: WBC 8.4, hemoglobin 13.9, potassium 4.4, BUN 19 and creatinine 0.61. Troponin 0.053 and 0.063. C-reactive protein less than 0.5. Triglycerides 60, cholesterol 126, LDL 45. -Home cardiac medications: Atorvastatin 20 mg at bedtime. -Echocardiogram performed in the office on 08/27/2024: EF 55 to 60%, mild left ventricular hypertrophy, aortic valve is calcified, mild mitral regurgitation, mild tricuspid regurgitation, normal PASP of 29. -Lexiscan Cardiolite stress test performed in 2020 was nondiagnostic. No evidence of stress-induced ischemia perfusion imaging. 09/29 Patient seen and examined on the cardiac stepdown unit. Repeat echocardiogram reveals EF of 55 to 60%, aortic sclerosis, mild pulmonary hypertension. Blood pressure 122/64, heart rate 60, pulse ox 95% on room air. MRI of the brain reveals acute/subacute ischemia concerning for embolic phenomenon. Fourth troponin came back at 0.055. Patient remains without chest pain or chest pressure. 09/30 Patient seen and examined. Vital signs have been stable, blood pressure 138/69, heart rate 70, pulse ox 96% on room air. Repeat blood work reveals BUN 22 creatinine 0.69. Patient is scheduled for ERICA on Tuesday with Dr. Vizcarra. 10/01/2024 Patient underwent ERICA with Dr. Vizcarra this morning which was unremarkable. Patient examined at the bedside. Patient denies chest pain or pressure. She denies shortness of breath. Vital signs are stable. Telemetry reveals sinus mechanism. PHYSICAL EXAM: VITAL SIGNS: Reviewed. GENERAL: Well-developed in no acute distress. NECK: Supple. No JVD or thyromegaly LUNGS: Respirations even and unlabored. Lungs essentially clear to auscultation bilaterally. HEART: Regular rate and rhythm. S1 and S2 heard. EXTREMITIES: Normal range of motion. No clubbing or cyanosis. Peripheral pulses intact. No lower extremity edema ASSESSMENT: Visual loss in the right eye secondary to acute/subacute CVA concerning for embolic phenomenon Elevated troponins, flat pattern, type II MD, not indicative of acute coronary syndrome Dyslipidemia Diabetes mellitus type 1 History of pancreatic cancer status post Whipple History of left nephrectomy PLAN: Continue current cardiac medications including aspirin, Lipitor, Plavix Patient to undergo loop recorder insertion today with Dr. Gomez Continue telemetry monitoring to assess for atrial fibrillation Further recommendations pending patient course Patient to follow-up postdischarge in office with Dr. Vizcarra Nurse practitioner note has been reviewed by physician. Signing provider agrees with the documented findings, assessment, and plan of care documented by [employer] as a scribe. Objective - Vital Signs Vital signs: Vital Signs Temp 97.5 F L 10/01/24 03:30 Pulse 63 10/01/24 03:30 Resp 20 10/01/24 03:30 BP 144/64 10/01/24 03:30 Pulse Ox 95 10/01/24 03:30 FiO2 Intake & Output 09/30/24 10/01/24 10/01/24 18:59 06:59 18:59 Intake Total 1440 230 Balance 1440 230 Weight 79 kg Intake: IV 50 Oral 1440 180 Other: Voiding Method Toilet Toilet # Voids 3 2 - Labs CBC & Chem 7: 09/30/24 05:51 10/01/24 08:26 Labs: Abnormal Lab Results - Last 24 Hours (Table) 09/30/24 10/01/24 10/01/24 Range/Units 16:04 05:50 08:26 Sodium 134 L (137-145) mmol/L BUN 22 H (7-17) mg/dL Glucose 285 H (74-99) mg/dL POC Glucose (mg/dL) 204 H 265 H (70-110) mg/dL 10/01/24 Range/Units 08:43 Sodium (137-145) mmol/L BUN (7-17) mg/dL Glucose (74-99) mg/dL POC Glucose (mg/dL) 236 H (70-110) mg/dL
--- NOTE | 2024-10-01 11:50 | P.EPPROC ---
- EP Procedure Note Electrophysiology Procedure Note: Loop monitor implant Primary physicians: Dr. arrieta Stone Finisher: Dr. Vizcarra Indication: Cryptogenic stroke, embolic CVA documented on MRI, mild carotid atherosclerosis, on statins, type 2 diabetes, normal ERICA Patient was brought to the EP lab in a fasting state. Written informed consent was obtained prior to the procedure. The left pectoral area was prepped and draped per protocol. Intravenous antibiotic was administered preoperatively. A subcutaneous Loop monitor was implanted successfully and the wound was closed per protocol. The device was programmed to detect significant alessandra- arrhythmic and tachy-arrhythmic events, per protocol. Device and programming details: Atrial fibrillation detection protocol
[2024-10-01 12:30] LABS: Glucose,Whole Blood 232 mg/dL (70-110)
--- NOTE | 2024-10-01 12:36 | P.DS ---
Providers Date of admission: 09/27/24 21:20 Attending physician: Yesika Hill MD Consults: 09/27/24 21:19 Consult Physician Urgent Consulting Provider: Hiram Quiñones Consult Reason/Comments: stroke workup, decreased vision Do you want consulting provider notified?: Yes 09/28/24 09:28 Consult Physician Routine Consulting Provider: Jerardo June Consult Reason/Comments: Elevated troponin Do you want consulting provider notified?: Yes Primary care physician: [facility] Course: Discharge Diagnosis: #Vision loss in the right eye secondary to an acute/subacute stroke with brain MRI revealing possible embolic phenomenon #Troponin elevation flat pattern with cardiology ruling out acute coronary syndrome #History of diabetes mellitus type 1 #History of kidney cancer with pancreatic metastasis #Status post left nephrectomy #Status post Whipple procedure #Former smoker #Bilateral cataract surgery in the past Hospital Course: Patient is a 73-year-old female with a history of hyperlipidemia, pancreatic cancer status post Whipple surgery and renal cancer status post left nephrectomy presents to the ER with concerns of vision changes in her right eye on the afternoon of 09/27/2024. Patient reports that she was celebrating her wedding anniversary with her at restaurant and after she came back home she experienced sudden onset loss of vision in her right eye. Patient has mild medial visual field and no lateral visual field in her right eye. She describes her vision in the right eye as seeing dots of lights with mild blurriness and " things moving around". Patient has a history of cataract surgeries in both eyes 5 years ago. Before coming to the ER, patient saw her eye doctor Dr. Vasquez who assessed her and advised her to get further evaluation for concerns of TIA and/or stroke. Patient denies history of CAD and/or CVA. Denies chest pain, shortness of breath, numbness, weakness, tingling in upper or lower extremities. No recent trauma to the head. Initial laboratory evaluation shows WBC 8.4, hemoglobin 13.9, platelet count 268, sodium 134, potassium 4.8, BUN 21, creatinine 0.61, serum glucose 222, AST 48, ALT 39, troponin I 0.043 (subsequently 0.066), triglycerides 60.8, total cholesterol 126, LDL 45.6, HDL 68.20, Chest x-ray shows no acute cardiopulmonary disease. CT brain shows no acute intracranial hemorrhage or midline shift. EKG shows normal sinus rhythm with ventricular rate of 64 bpm, NM interval 137, QRS duration 89, QTc 392. Poor R wave progression. No Q waves noted. Carotid Doppler ultrasound is negative. Vital signs on arrival shows temperature 98.0 F, pulse rate 67, blood pressure 158/82, respirate 18, oxygen saturation 96% on room air. Cardiology and neurology were consulted. Brain MRI showed embolic acute/subacute ischemia involving posterior limb of the right internal capsule, the left carotid nucleus head and the left parietal lobe. Echocardiogram with bubble study shows LVEF at 55 to 60% with normal LV systolic function. Negative bubble study. Mildly enlarged RV. ERICA was unremarkable. Patient had a loop recorder implantation to detect and record irregular heart rhythm. Patient continue to have vision loss in the right eye but denies any other focal neurologic deficit. Patient continues to deny shortness of breath or chest pain. Patient is otherwise medically stable and optimized for discharge. Patient to continue with dual antiplatelet therapy with aspirin and Plavix for 21 days. Patient to continue with aspirin after 21 days. Discharge disposition: Home with self-care Discharge instructions: Follow-up with PCP, neurology, cardiology and ophthalmology Resume home medications as directed Dual antiplatelet therapy aspirin and Plavix for 21 days Patient educated on embolic stroke Vital signs reviewed. General: non toxic, no distress, appears at stated age, overweight Derm: no unusual rashes/lesions, warm Head: atraumatic, normocephalic, symmetric Eyes: Right ipsilateral hemianopsia with decreased visual acuity in nasal visual field. Left eye is normal. EOMI, no lid lag, anicteric sclera, PERRLA ENT: Nose and ears atraumatic Neck: No cervical lymphadenopathy, trachea midline, supple Mouth: no lip lesion, mucus membranes moist Cardiovascular: S1S2 reg, no murmur, positive dorsalis pedis pulse bilateral, no edema Lungs: CTA bilateral, no rhonchi, no rales, no accessory muscle use Abdominal: soft, nontender to palpation, no guarding Ext: muscle strength 5 out of 5 in all 4 extremities grossly, no gross muscle atrophy, no contractures, Neuro: CN II-XI grossly intact, no gross focal neuro deficits Psych: Alert, oriented, appropriate affect Dictation was produced using [email or web address] dictation software. Please excuse any grammatical, word or spelling errors. Patient Condition at Discharge: Stable Plan - Discharge Summary Discharge Rx Participant: No New Discharge Prescriptions: New Aspirin 81 mg PO DAILY #60 tab Atorvastatin [Lipitor] 40 mg PO HS #60 tab Clopidogrel [Plavix] 75 mg PO DAILY #17 tab Continue Lipase/Protease/Amylase [Layne Ni 36,000 Unit Capsule] 1 cap PO DIRECTED PRN MDD 9 capsules PRN Reason: snacks Lipase/Protease/Amylase [Layne Ni 36,000 Unit Capsule] 2 units PO TID-W/MEALS Insulin Aspart [NovoLOG Flexpen] See Protocol SQ AC-TID Pantoprazole [Protonix] 40 mg PO MOWEFR Insulin Glargine,Hum.rec.anlog [Toujeo Solostar] 18 units SQ DAILY@0730 Ergocalciferol [Vitamin D2 (1250 Mcg = 88812 Iu)] 1,250 mcg PO MO Multivit with Calcium,Iron,Min [Women's Multivitamin] 1 tab PO DAILY Discontinued Atorvastatin [Lipitor] 20 mg PO HS Discharge Medication List Insulin Aspart [NovoLOG Flexpen] See Protocol SQ AC-TID 07/27/18 [History] Lipase/Protease/Amylase [Layne Ni 36,000 Unit Capsule] 1 cap PO DIRECTED PRN MDD 9 capsules 07/27/18 [History] Lipase/Protease/Amylase [Layne Ni 36,000 Unit Capsule] 2 units PO TID-W/MEALS 07/27/18 [History] Insulin Glargine,Hum.rec.anlog [Toujeo Solostar] 18 units SQ DAILY@0730 05/30/20 [History] Pantoprazole [Protonix] 40 mg PO MOWEFR 05/30/20 [History] Ergocalciferol [Vitamin D2 (1250 Mcg = 93033 Iu)] 1,250 mcg PO MO 09/28/24 [History] Multivit with Calcium,Iron,Min [Women's Multivitamin] 1 tab PO DAILY 09/28/24 [History] Aspirin 81 mg PO DAILY #60 tab 10/01/24 [Rx] Atorvastatin [Lipitor] 40 mg PO HS #60 tab 10/01/24 [Rx] Clopidogrel [Plavix] 75 mg PO DAILY #17 tab 10/01/24 [Rx] Follow up Appointment(s)/Referral(s): Ciaran Leal MD [STAFF PHYSICIAN] - 1 Week Cliff Whitman MD [Primary Care Provider] - 1-2 days Rolf Pedersen MD [Medical Doctor] - 1 Week Jerardo June MD [STAFF PHYSICIAN] - 2 Weeks Patient Instructions/Handouts: Ischemic Stroke (DC) Activity/Diet/Wound Care/Special Instructions: Please follow-up with your PCP, neurologist, cardiology, and ophthalmology within 1 to 2 weeks. Please continue with aspirin and Plavix for total of 21 days and then stop Plavix and continue with aspirin after that.
[2024-10-01 15:06] VITALS: PULSE 64; RESP 18; TEMP 98.1
[2024-10-01 15:09] VITALS: BP 164/74
[2024-10-01] MEDS ORDERED: INSULIN GLARGINE (LANTUS) 100 UNIT/ML SYR SQ SCH (21:00)
--- NOTE | 2024-10-02 11:35 | CDI ---
Documentation Clarification Form Date: 10/02/2024 From: Anita [email or web address] Email: [email or web address] Admit Date: 09/27/2024 09:20:00 PM Patient Name: Liliana Petersen Visit Number: [id number] Discharge Date: 10/01/2024 03:02:00 PM ATTENTION: The Clinical Documentation Specialists (CDI) and [facility] Coding Staff appreciate your assistance in clarifying documentation. Please respond to the clarification below the line at the bottom and electronically sign. The CDI & [facility] Coding staff will review the response and follow-up if needed. Please note: Queries are made part of the Legal Health Record. If you have any questions, please contact the author of this message via ITS. Dr. Zakiya Lee, Conflicting documentation has been found in the medical record. As attending physician, please provide clarification. Discharge Summary Report (10/01/2024): Troponin elevation flat pattern with cardiology ruling out acute coronary syndrome Cardiology Progress Note (10/01/2024): Elevated troponins, flat pattern, type II DE, not indicative of acute coronary syndrome History/Risk Factors: 73-year-old female presented to [facility] ED for evaluation due to sudden loss of vision in her right eye. PMH: CAD seen on CT scan, type 1 diabetes mellitus, dyslipidemia, secondary pancreatic cancer status-post Whipple procedure, kidney cancer status- post left nephrectomy Clinical Indicators: Documentation Location: Electronic Medical Record Vital Signs in ED: Temperature: 98.0 F Pulse Rate: 67 Respiratory Rate: 18 Blood Pressure: 158/82 SpO2 96% on RA EKG (09/27/2024): Sinus rhythm. Low QRS voltage in precordial leads. Borderline ECG Echocardiogram (09/28/2024): Left ventricular ejection fraction is estimated at 55-60%. Normal LV systolic function. Moderately enlarged RV. Aortic sclerosis. Mild pulmonary hypertension. Troponin Trend: 09/27/2024 @ 16:14 09/28/2024 @ 07:43 09/28/2024 @ 12:55 09/28/2024 @ 18:41 0.053 0.066 0.045 0.055 Cardiology Progress Note (10/01/2024): o EKG: Sinus rhythm with no acute ST-T wave changes o Repeat echocardiogram reveals EF of 55 to 60%, aortic sclerosis, mild pulmonary hypertension o MRI of the brain reveals acute/subacute ischemia concerning for embolic phenomenon o Patient remains without chest pain or chest pressure o Patient underwent ERICA with Dr. Vizcarra this morning which was unremarkable o Elevated troponins, flat pattern, type II DE, not indicative of acute coronary syndrome Treatment: Cardiology Consultation ERICA Loop Recorder Insertion Troponin Trend Telemetry Monitoring Aspirin 325mg Oral x 1 Please clarify which diagnosis is most appropriate: [ ] Non-DE troponin elevation (myocardial infarction ruled out) [ ] Type 2 DE secondary to (please specify underlying etiology) as evidenced by (please provide rationale) [ ] Other (please specify) [ ] Unable to determine Reference: [employer] [place] Definition of Myocardial Infraction Type II DE is indicated when an acute myocardial injury in the setting of an abnormal troponin with a rise and fall and clinical indicators suggestive of an imbalance between myocardial oxygen supply demand with acute myocardial ischemia unrelated to coronary thrombosis as evidenced by one of the following: Symptoms of myocardial ischemia New ischemic ECG changes Development of pathological Q waves Imaging evidence of new loss of viable myocardium or new regional wall motion abnormality in a pattern consistent with an ischemic etio Unable to determine MTDD
== END 2024-10-01 15:02 | disposition home or self-care (01) | DRG 42 ==
LOC: EC 15:43 → 1SOBS 21:19 → OBSVTOIN 21:20 → 1SOBS 22:12 → 3SCARD 09-28 10:06 → 6NMEDSUR 09-28 13:08 → 3SCARD 09-28 20:57
PROVIDERS: ADMIT Internal Medicine; ATTEND Internal Medicine
PROC: 0JH632Z Insertion of Monitoring Device into Chest Subcutaneous Tissue and Fascia, Percutaneous Approach (ICD-10-PCS; 2024-10-01)
PROC: B24BZZ4 Ultrasonography of Heart with Aorta, Transesophageal (ICD-10-PCS; principal; 2024-10-01 13:45)
DX: I63.40 Cerebral infarction due to embolism of unspecified cerebral artery (principal); I16.0 Hypertensive urgency; E10.65 Type 1 diabetes mellitus with hyperglycemia; I65.23 Occlusion and stenosis of bilateral carotid arteries; Z79.4 Long term (current) use of insulin; H54.61 Unqualified visual loss, right eye, normal vision left eye; E78.5 Hyperlipidemia, unspecified; R29.701 NIHSS score 1; I51.7 Cardiomegaly; Z87.891 Personal history of nicotine dependence; Z90.411 Acquired partial absence of pancreas; Z88.0 Allergy status to penicillin; Z88.2 Allergy status to sulfonamides; Z79.02 Long term (current) use of antithrombotics/antiplatelets; Z79.82 Long term (current) use of aspirin; Z90.5 Acquired absence of kidney; Z79.899 Other long term (current) drug therapy; Z82.3 Family history of stroke; Z85.07 Personal history of malignant neoplasm of pancreas; Z85.528 Personal history of other malignant neoplasm of kidney; Z90.710 Acquired absence of both cervix and uterus
CPT/HCPCS: 33285; 36415; 70450; 70551; 71046; 80048; 80053; 80061; 82550; 83036; 84443; 84484; 85025; 85610; 85652; 85730; 86140; 86850; 86900; 86901; 93005; 93306; 93312; 93320; 93325; 93880; 99285